=== PATIENT | female | born 1960 | race Caucasian/White ===

== ENCOUNTER 2023-04-04 15:52 | Outpatient (OUT) | payer OTHER, SELFPAY ==
[2023-04-04 16:14] LABS: Basophils Percent Auto 0.2 % (0.2-2.0); Eosinophils Percent Auto 0.1 % (0.9-7.0); Hematocrit 38.7 % (36.0-48.0); Hemoglobin 13.3 g/dL (12.0-16.0); Immature Granulocytes Abs Auto 0.05 10^3/uL (0.00-0.03); Immature Granulocytes Pct Auto 0.5 % (0.0-0.5); Lymphocytes Absolute Auto 2.1 10^3/uL (1.2-3.8); Lymphocytes Percent Auto 23.4 % (20.5-60.0); Mean Corpuscular HGB Conc 34.4 g/dL (29.9-35.2); Mean Corpuscular Hemoglobin 31.1 pg (26.7-34.0); Mean Corpuscular Volume 90.6 fL (81.0-99.0); Mean Platelet Volume 9.6 fL (9.5-13.5); Monocytes Absolute Auto 0.7 10^3/uL (0.3-0.8); Monocytes Percent Auto 7.1 % (1.7-12.0); Neutrophils Absolute Auto 6.2 10^3/uL (1.4-6.5); Neutrophils Percent Auto 68.7 % (43.0-75.0); Platelet Count 326 10^3/uL (150-450); Red Blood Count 4.27 10^6/uL (4.20-5.40); Red Cell Distribution Width 12.3 % (11.0-15.0); White Blood Count 9.1 10^3/uL (4.0-11.0)
[2023-04-04 16:36] LABS: Alanine Aminotransferase 30 U/L (14-59); Albumin Globulin Ratio 1.2; Albumin Level 4.3 g/dL (3.4-5.0); Alkaline Phosphatase 94 U/L (46-116); Anion Gap 14.7; Aspartate Amino Transferase 16 U/L (15-37); BUN Creatinine Ratio 25.8; Bilirubin Total 0.5 mg/dL (0.2-1.0); Calcium 9.1 mg/dL (8.5-10.1); Chloride 99 mmol/L (98-107); Estimated GFR (African America >60 (>=60); Estimated GFR (Non-African Ame 58 (>=60); Globulin 3.6 g/dL; Glucose 110 mg/dL (74-106); Sodium 139 mmol/L (136-145); Total Protein 7.9 g/dL (6.4-8.2)
[2023-04-04 17:00] LABS: Potassium 2.7 mmol/L (3.5-5.1)
== END 2023-04-04 15:53 | disposition home or self-care (01) ==
LOC: LAB 15:59
PROVIDERS: PCP Family Medicine; Visit Provider Registered Nurse
DX: M15.0 Primary generalized (osteo)arthritis (principal); M79.7 Fibromyalgia; Z79.899 Other long term (current) drug therapy
CPT/HCPCS: 36415; 80053; 85025

== ENCOUNTER 2023-04-04 17:17 | Emergency (ER) | payer OTHER, SELFPAY ==
[2023-04-04 17:44] VITALS: BP 187/86; PULSE 57; RESP 16; TEMP 36.4; O2SAT 100; BMI 28.3
--- NOTE | 2023-04-04 17:45 | ECG_ITS ---
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
--- NOTE | 2023-04-04 17:57 | ED_ITS ---
HPI - Recheck/Abnormal Lab/Rx General Chief Complaint: Recheck/Abnormal Lab/Rx Stated Complaint: Abnormal Labs Time Seen by Provider: 04/04/23 17:46 Source: patient and family Mode of arrival: walk-in Limitations: no limitations History of Present Illness HPI narrative: 63-year-old female presents for low potassium. She had routine blood work done today and she reports her potassium came back at 2.7 and she was sent in to have it checked. She has no symptoms at all. 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 She had been started on Lasix a few weeks ago and is not on a potassium supplement. Related Data Previous Rx's Medication Instructions Recorded potassium chloride 20 mEq 20 meq PO BID #20 tabs 04/04/23 tablet,extended release(part/cryst) Allergies Allergy/AdvReac Type Severity Reaction Status Date / Time sumatriptan [From Imitrex] AdvReac Severe Migraine Verified 04/04/23 17:44 topiramate [From Trokendi XR] AdvReac Severe nightmares Verified 04/04/23 17:44 Review of Systems ROS Narrative A ten point review of systems is negative except as noted above. PFSH PFSH Social History Smoking status: Never smoker Exam Narrative Exam Narrative: Nurses note and vital signs reviewed and patient is not hypoxic. General: The patient appears well and in no apparent distress. Patient is resting comfortably on cart. Skin: Warm, dry, no pallor noted. There is no rash noted. Head: Normocephalic, atraumatic Eye: Normal conjunctiva, no drainage Ears, Nose, Mouth, and Throat: oral mucosa is moist. Nares patent. Cardiovascular: Regular Rate and Rhythm Respiratory: Patient is in no distress, no accessory muscle use, lungs are clear to auscultation, no wheezing, rales or rhonchi Back: non-tender GI: soft and nontender Musculoskeletal: The patient has no evidence of calf tenderness, no pitting edema, symmetrical pulses noted bilaterally Neurological: A&O, normal speech Psychiatric: Cooperative Constitutional Vital Signs, click to edit/add: Last Vital Signs Temp 97.6 F 04/04/23 17:44 Pulse 57 L 04/04/23 17:44 Resp 16 04/04/23 17:44 BP 187/86 H 04/04/23 17:44 Pulse Ox 100 04/04/23 17:44 O2 Del Method Room Air 04/04/23 17:44 Course Vital Signs Vital signs: Vital Signs Temperature 97.6 F 04/04/23 17:44 Pulse Rate 57 L 04/04/23 17:44 Respiratory Rate 16 04/04/23 17:44 Blood Pressure 187/86 H 04/04/23 17:44 Pulse Oximetry 100 04/04/23 17:44 Oxygen Delivery Method Room Air 04/04/23 17:44 Temperature 97.6 F 04/04/23 17:44 Pulse Rate 57 L 04/04/23 17:44 Respiratory Rate 16 04/04/23 17:44 Blood Pressure 187/86 H 04/04/23 17:44 Pulse Oximetry 100 04/04/23 17:44 Oxygen Delivery Method Room Air 04/04/23 17:44 MDM - Recheck/Abnormal Lab/Rx MDM Narrative Medical decision making narrative: potassium is 2.8 -year-old. She is given oral potassium and prescribed potassium. Recheck with her physician regarding her potassium in a week. Treatment diagnosis and follow-up were discussed with the patient. Differential Diagnosis Differential diagnosis: Likely other (hypokalemia, lab error) Lab Data Attestation: I reviewed the patient's lab results. Labs: Lab Results 04/04/23 Range/Units 18:17 WBC 10.0 (4.0-11.0) 10^3/uL RBC 4.18 L (4.20-5.40) 10^6/uL Hgb 12.8 (12.0-16.0) g/dL Hct 38.4 (36.0-48.0) % MCV 91.9 (81.0-99.0) fL MCH 30.6 (26.7-34.0) pg MCHC 33.3 (29.9-35.2) g/dL RDW 12.3 (11.0-15.0) % Plt Count 301 (150-450) 10^3/uL MPV 9.5 (9.5-13.5) fL Neut % (Auto) 63.9 (43.0-75.0) % Lymph % (Auto) 28.0 (20.5-60.0) % [place] % (Auto) 7.4 (1.7-12.0) % Eos % (Auto) 0.2 L (0.9-7.0) % Baso % (Auto) 0.3 (0.2-2.0) % Neut # (Auto) 6.4 (1.4-6.5) 10^3/uL Lymph # (Auto) 2.8 (1.2-3.8) 10^3/uL [place] # (Auto) 0.7 (0.3-0.8) 10^3/uL Eos # (Auto) 0.0 (0.0-0.7) 10^3/uL Baso # (Auto) 0.0 (0.0-0.1) 10^3/uL Abs Immat Gran (auto) 0.02 (0.00-0.03) 10^3/uL Imm/Tot Granulo (auto) 0.2 (0.0-0.5) % Sodium 135 L (136-145) mmol/L Potassium 2.8 L* (3.5-5.1) mmol/L Chloride 100 (98-107) mmol/L Carbon Dioxide 28.7 (21.0-32.0) mmol/L Anion Gap 9.1 BUN 25.0 H (7.0-18.0) mg/dL Creatinine 1.04 H (0.55-1.02) mg/dL Est GFR ( Amer) >60 (>=60) Est GFR (Non-Af Amer) 53 L (>=60) BUN/Creatinine Ratio 24.0 Glucose 77 (74-106) mg/dL Calcium 9.1 (8.5-10.1) mg/dL Discharge Plan Discharge Chief Complaint: Recheck/Abnormal Lab/Rx Clinical Impression: Hypokalemia Patient Disposition: Home, Self-Care Time of Disposition Decision: 18:42 Condition: Good Mode of Transportation: Private Vehicle Prescriptions / Home Meds: New potassium chloride 20 mEq tablet,ER particles/crystals 20 meq PO BID Qty: 20 0RF Instructions: Potassium Content of Foods List (ED), Hypokalemia (ED) Additional Instructions: recheck potassium with your PCP in a week Stand Alone Forms: Portal Instructions Referrals: GT ORONA [Primary Care Provider] - 1 week
[2023-04-04 18:24] LABS: Basophils Percent Auto 0.3 % (0.2-2.0); Eosinophils Percent Auto 0.2 % (0.9-7.0); Hematocrit 38.4 % (36.0-48.0); Hemoglobin 12.8 g/dL (12.0-16.0); Immature Granulocytes Abs Auto 0.02 10^3/uL (0.00-0.03); Immature Granulocytes Pct Auto 0.2 % (0.0-0.5); Lymphocytes Absolute Auto 2.8 10^3/uL (1.2-3.8); Mean Corpuscular HGB Conc 33.3 g/dL (29.9-35.2); Mean Corpuscular Hemoglobin 30.6 pg (26.7-34.0); Mean Corpuscular Volume 91.9 fL (81.0-99.0); Mean Platelet Volume 9.5 fL (9.5-13.5); Monocytes Absolute Auto 0.7 10^3/uL (0.3-0.8); Monocytes Percent Auto 7.4 % (1.7-12.0); Neutrophils Absolute Auto 6.4 10^3/uL (1.4-6.5); Neutrophils Percent Auto 63.9 % (43.0-75.0); Platelet Count 301 10^3/uL (150-450); Red Blood Count 4.18 10^6/uL (4.20-5.40); Red Cell Distribution Width 12.3 % (11.0-15.0)
[2023-04-04 18:35] LABS: Anion Gap 9.1; Calcium 9.1 mg/dL (8.5-10.1); Carbon Dioxide 28.7 mmol/L (21.0-32.0); Chloride 100 mmol/L (98-107); Estimated GFR (African America >60 (>=60); Estimated GFR (Non-African Ame 53 (>=60); Glucose 77 mg/dL (74-106); Sodium 135 mmol/L (136-145)
[2023-04-04 18:37] LABS: Potassium 2.8 mmol/L (3.5-5.1)
[2023-04-04] MEDS: PROMETHAZINE HCL 25 MG/ML VIAL IM (18:54)
[2023-04-04] MEDS: MORPHINE SULFATE 4 MG/ML VIAL 10 MG IM (19:07)
== END 2023-04-04 19:12 | disposition home or self-care (01) ==
PROVIDERS: Emergency Provider Emergency Medicine; PCP Family Medicine
DX: M15.0 Primary generalized (osteo)arthritis (principal); M79.7 Fibromyalgia; Z79.899 Other long term (current) drug therapy; E87.6 Hypokalemia
CPT/HCPCS: 36415; 80048; 80053; 85025; 93005; 96372; 99285

== ENCOUNTER 2023-07-31 12:16 | Outpatient (OUT) | payer OTHER, SELFPAY ==
--- NOTE | 2023-07-31 12:30 | ECG_ITS ---
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
--- OUTSIDE RECORDS SUMMARY | 2023-07-31 12:37 | XMS_ITS | CCD ---
Author Name Unknown Address [address] [place] [address] Organization [facility] Care Team Providers Care Lumber Checker Name Role Phone [facility] Unava ilable PAY, DR CALLEJAS Attending Unavailable PAY, DR CALLEJAS Admitting Unavailable PAY, DR CALLEJAS Consulting Unavailable FRANCISCA MCGEE Attending Unavailable FRANCISCA MCGEE Admitting Unavailable ADWOA, DR DEL REAL Primary Care Unavailable FRANCISCA MCGEE Consulting Unavailable CHELSEA GRECO Admitting Unavailable CHELSEA GRECO Consulting Unavailable [facility] Unava ilable CHELSEA GRECO Attending Unavailable Sg Hernández MD Primary Care Provider Sg Hernández MD Unavailable OMAR RAMOS Attending Unavailable OMAR RAMOS Attending Unavailable OMAR RAMOS Attending Unavailable OMAR RAMOS Attending Unavailable Allergies Allergy Classification Reported Allergen(s) Allergy Type Date of Onset Reaction(s) Facility (1 source) Plasmin Drug Allergy 07-20-2016 [facility] (1 source) topiramate Drug Allergy [facility] (6 sources) SUMAtriptan Drug Allergy 02-08-2023 [facility] (6 sources) topiramate Drug Allergy 02-08-2023 [facility] Medications Current Medications Medication Drug Class(es) Dates Sig (Normalized) Sig (Original) ALPRAZolam 0.5 mg oral tablet (6 sources) Benzodiazepine Start: 4 take 1 tablet by mouth twice daily as needed for anxiety ALPRAZolam (Xanax) 0.5 MG tablet Indications: Grief (CMS/HCC) Take 1 tablet (0.5 mg) by mouth 2 (two) times a day as needed for anxiety 60 tablet 2 06/07/2023 Active biotin 10 mg oral tablet (6 sources) biotin 10 MG tab let 1 (one) time each day at the same time. 0 Active brexpiprazole 1 mg oral tablet (6 sources) Atypical Antipsychotic Start: 3 Brexpiprazole (Rexulti) 1 MG tablet Indications: Anxiety Take 1 mg by mouth 1 (one) time each day at the same time. 1 (one) time each day at the same time. 30 tablet 1 2023 Active cetirizine hydrochloride 10 mg oral tablet (6 sources) Histamine-1 Receptor Antagonist cetirizine (ZyrTEC) 10 MG tablet 1 (one) time each day at the same time. 0 Active chlorthalidone 25 mg oral tablet (6 sources) Thiazide-like Diuretic chlorthalidone (Hygroton) 25 MG tablet Take by mouth Daily. 0 Active furosemide 20 mg oral tablet (6 sources) Loop Diuretic Start: 3 End: 4 take 1 tablet by mouth in the morning furosemide (Lasix) 20 MG tablet Indications: Leg pain, bilateral Take 1 tablet (20 mg) by mouth in the morning. 30 tablet 11 2023 2024 Active levothyroxine sodium 0.088 mg oral tablet (6 sources) l-Thyroxine Start: 3 take 1 tablet by mouth once daily levothyroxine (Synthroid, Levoxyl) 88 MCG tablet Indications: Acquired hypothyroidism (CMS/HCC) Take 1 tablet by mouth once daily. 100 tablet 3 04/23/2023 Active methylPREDNISolone (2 sources) Corticosteroid Start: 4 methylPREDNISolone (Medrol Dospak) 4 MG tablets Indications: Right Achilles tendinitis Follow schedule on MEDROL PACK package instructions to be used as directed 21 tablet 0 07/12/2023 Active Multiple Vitamin (Multi Vitamin) tablet (6 sources) Multiple Vitamin (Multi Vitamin) tablet 1 (one) time each day at the same time. 0 Active 24 hr propranolol hydrochloride 60 mg extended release oral capsule (6 sources) beta-Adrenergic Nabeel propranolol LA (Inderal LA) 60 MG 24 hr capsule 1 capsule 1 (one) time each day at the same time. 0 Active tiZANidine 4 mg oral tablet (6 sources) Central alpha-2 Adrenergic Agonist tiZANidine (Zanaflex ) 4 MG tablet every 8 (eight) hours. 0 Active 24 hr venlafaxine 150 mg extended release oral capsule (6 sources) Serotonin and Norepinephrine Reuptake Inhibitor venlafaxine XR (Effexor XR) 150 MG 24 hr capsule 1 (one) time each day at the same time. 0 Active Problems Active Problems Problem Classification Problem Date Documented Da te Episodic/Chronic Adjustment disorders (6 sources) Grief finding; Translations: [Adjustment disorder with depressed mood] Onset: 12-04-2022 12-04-2022 Chronic Anxiety disorders (7 sources) Other specified anxiety disorders; Translations: [Anxiety] Onset: 05-05-2022 2023 Chronic Cataract (6 sources) Nuclear senile cataract; Translations: [Age-related nuclear cataract, unspecified eye] Onset: 02-08-2023 02-08-2023 Chronic Disorders of lipid metabolism (6 sources) Pure hypercholesterolemi a; Translations: [Pure hypercholesterolemi a, unspecified] Onset: 12-04-2022 12-04-2022 Chronic Essential hypertension (6 sources) Hypertensive disorder; Translations: [Essential (primary) hypertension] Onset: 12-04-2022 12-04-2022 Chronic Headache; including migraine (12 sources) Migraine without aura, not refractory ; Translations: [Migraine without aura, not intractable, without status migrainosus] Onset: 08-31-2022 12-04-2022 Chronic Headache; including migraine (4 sources) Headache; including migraine; Translations: [HEADACHE UNSPECIFIED] Onset: 05-03-2022 Neoplasms of unspecified nature or uncertain behavior (2 sources) Neoplasm of uncertain behavior of skin; Translations: [Neoplasm of uncertain behavior of skin] 07-05-2023 Episodic Other acquired deformities (4 sources) Contracture of joint of right ankle; Translations: [Contracture, right ankle] 07-05-2023 Chronic Other aftercare (1 source) Other half-way (current) drug therapy; Translations: [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] Onset: 2022 Episodic Other connective tissue disease (2 sources) Plantar fasciitis; Translations: [Plantar fascial fibromatosis] 07-05-2023 Episodic Other connective tissue disease (4 sources) Right achilles tendonitis; Translations: [Achilles tendinitis, right leg] 07-05-2023 Episodic Other nervous system disorders (1 source) Other chronic pain; Translations: [OTHER CHRONIC PAIN] Onset: 01-06-2022 Chronic Thyroid disorders (7 sources) Hypothyroidism, unspecified; Translations: [Hypothyroidism] Onset: 01-06-2022 12-04-2022 Chronic Viral infection (4 sources) COVID-19; Translations: [COVID-19] Onset: 02-04-2022 Past or Other Problems Problem Classification Problem Date Documented Date Episodic/Chronic Nausea and vomiting (1 source) Nausea; Translations: [NAUSEA] Onset: 01-06-2022 Episodic Other connective tissue disease (1 source) Fibromyalgia; Translations: [FIBROMYALGIA] Onset: 01-06-2022 Episodic Other connective tissue disease (6 sources) Fibromyalgia; Translations: [Fibromyalgia] Onset: 08-31-2022 03-25-2023 Episodic Other eye disorders (6 sources) Dermatochalasis of left upper eyelid; Translations: [Dermatochalasis of left upper eyelid] Onset: 02-08-2023 02-08-2023 Episodic Other eye disorders (6 sources) Excess skin of eyelid; Translations: [Blepharochalasis unspecified eye, unspecified eyelid] Onset: 02-08-2023 02-08-2023 Episodic Other non-traumatic joint disorders (6 sources) Pain in left knee; Translations: [Pain in joint, lower leg] Onset: 08-31-2022 03-25-2023 Episodic Spondylosis; intervertebral disc disorders; other back problems (1 source) Cervicalgia; Translations: [CERVICALGIA] Onset: 01-06-2022 Episodic Results Test Name Value Interpretation Reference Range Facil ity CBC AUTO DIFFon 02-04-2022 BASO # 0.0 103/ul Normal 0.0-0.1 [facility] Comment on above: Performed By: #### C BC #### [facility] [address] [place] [address] Dr. Sarah Peña Basophils/100 WBC (Bld) 0.4 % Normal 0.2-2.0 [facility] Comment on above: Performed By: #### C BC #### [facility] [address] [place] [address] Dr. Sarah Peña EO # 0.0 103/ul Normal 0.0-0.7 [facility] Comment on above: Performed By: #### C BC #### [facility] [address] [place] [address] Dr. Sarah Peña Eosinophils/100 WBC (Bld) 0.5 % Critically low 0.9-7.0 [facility] Comment on above: Performed By: #### C BC #### [facility] [address] [place] [address] Dr. Sarah Peña Erythrocyte distribution width (RBC) [Ratio] 13.1 % Normal 11.0-15.0 [facility] Comment on above: Performed By: #### C BC #### [facility] [address] [place] [address] Dr. Sarah Peña Hematocrit (Bld) [Volume fraction] 46.0 % Normal 36.0-48.0 [facility] Comment on above: Performed By: #### C BC #### [facility] [address] [place] [address] Dr. Sarah Peña Hemoglobin (Bld) [Mass/Vol] 15.3 g/dL Normal 12.0-16.0 [facility] Comment on above: Performed By: #### C BC #### [facility] [address] [place] [address] Dr. Sarah Peña IG # 0.01 10e3/ul Normal 0.00-0.03 [facility] Comment on above: Performed By: #### C BC #### [facility] [address] [place] [address] Dr. Sarah Peña IG % 0.2 % Normal 0.0-0.5 [facility] Comment on above: Performed By: #### C BC #### [facility] [address] [place] [address] Dr. Sarah Peña LYMPH # 1.8 103/ul Normal 1.2-3.8 [facility] Comment on above: Performed By: #### C BC #### [facility] [address] [place] [address] Dr. Sarah Peña Lymphocytes/100 WBC (Bld) 32.5 % Normal 20.5-60.0 [facility] Comment on above: Performed By: #### C BC #### [facility] [address] [place] [address] Dr. Sarah Peña MANUAL DIFF REQ NO Normal [facility] Comment on above: Performed By: #### C BC #### [facility] [address] [place] [address] Dr. Sarah Peña MCH (RBC) [Entitic mass] 29.8 pg Normal 26.7-34.0 [facility] Comment on above: Performed By: #### C BC #### [facility] [address] [place] [address] Dr. Sarah Peña MCHC (RBC) [Mass/Vol] 33.3 g/dL Normal 29.9-35.2 [facility] Comment on above: Performed By: #### C BC #### [facility] [address] [place] [address] Dr. Sarah Peña MCV (RBC) [Entitic vol] 89.5 fL Normal 81.0-99.0 [facility] Comment on above: Performed By: #### C BC #### [facility] [address] [place] [address] Dr. Sarah Peña MONO # 0.6 103/ul Normal 0.3-0.8 [facility] Comment on above: Performed By: #### C BC #### [facility] [address] [place] [address] Dr. Sarah Peña Monocytes/100 WBC (Bld) 10.8 % Normal 1.7-12.0 [facility] Comment on above: Performed By: #### C BC #### [facility] [address] [place] [address] Dr. Sarah Peña NEUT # 3.1 103/ul Normal 1.4-6.5 [facility] Comment on above: Performed By: #### C BC #### [facility] [address] [place] [address] Dr. Sarah Peña Neutrophils/100 WBC (Bld) 55.6 % Normal 43.0-75.0 [facility] Comment on above: Performed By: #### C BC #### [facility] [address] [place] [address] Dr. Sarah Peña Platelet mean volume (Bld) [Entitic vol] 9.8 fL Normal 9.5-13.5 [facility] Comment on above: Performed By: #### C BC #### [facility] [address] [place] [address] Dr. Sarah Peña PLT 245 103/ul Normal 150-450 [facility] Comment on above: Performed By: #### C BC #### [facility] [address] [place] [address] Dr. Sarah Peña RBC 5.14 106/ul Normal 4.20-5.40 [facility] Comment on above: Performed By: #### C BC #### [facility] [address] [place] [address] Dr. Sarah Peña WBC 5.5 103/ul Normal 4.0-11.0 [facility] Comment on above: Performed By: #### C BC #### [facility] [address] [place] [address] Dr. Sarah Peña PROF CHEM 8 (BAS METB)on Anion gap [Moles/Vol] 14.7 mmol/L Normal [facility] Comment on above: Performed By: #### B MP #### [facility] [address] [place] [address] Dr. Sarah Peña Calcium [Mass/Vol] 9.7 mg/dL Normal 8.5-10.1 [facility] Comment on above: Performed By: #### B MP #### [facility] [address] [place] [address] Dr. Sarah Peña Chloride [Moles/Vol] 98 mmol/L Normal 98-107 [facility] Comment on above: Performed By: #### B MP #### [facility] [address] [place] [address] Dr. Sarah Peña CO2 [Moles/Vol] 29.0 mmol/L Normal 21.0-32.0 [facility] Comment on above: Performed By: #### B MP #### [facility] [address] [address] [address] Sarah Peña Creatinine [Mass/Vol] 0.96 mg/dL Normal 0.55-1.02 [facility] Comment on above: Performed By: #### B MP #### [facility] [address] [address] [address] Sarah Peña EGFR-AF PALESTINIAN >60 Normal >=60 [facility] Comment on above: Performed By: #### B MP #### [facility] [address] [address] [address] Sarah Peña EGFR-NON AF PALESTINIAN 59 mL/min/1.73m2 Critically low >=60 [facility] Comment on above: Performed By: #### B MP #### [facility] [address] [address] [address] Sarah Peña Glucose [Mass/Vol] 110 mg/dL Critically high 74-[address] [facility] Comment on above: Performed By: #### B MP #### [facility] [address] [address] [address] Sarah Peña Potassium [Moles/Vol] 2.7 mmol/L Critically low 3.5-5.1 [facility] Comment on above: Performed By: #### B MP #### [facility] [address] [address] [address] Sarah Peña Sodium [Moles/Vol] 139 mmol/L Normal 136-145 [facility] Comment on above: Performed By: #### B MP #### [facility] [address] [address] [address] Sarah Peña Urea nitrogen [Mass/Vol] 14.0 mg/dL Normal 7.0-18.0 [facility] Comment on above: Performed By: #### B MP #### [facility] [address] [address] [address] Sarah Peña Urea nitrogen/Creatinine [Mass ratio] 14.6 mg/mg Normal [facility] Comment on above: Performed By: #### B MP #### [facility] [address] [address] [address] Sarah Peña Complete Blood Count Auto Di ffon 07-21-2021 Basophils (Bld) [#/Vol] 0.1 10*3/uL Normal 0.0-0.2 [facility] Comment on above: Result Comment: PERF ORMED BY: [place] [address] PATHOLOGIST MEDICAID BILLING CLERK ERINN BANEGAS M.D. Performed By: #### C MP, CBC #### [facility] [address] Basophils/100 WBC (Bld) 1.2 % Normal . [facility] Comment on above: Performed By: #### C MP, CBC #### [facility] [address] Eosinophils (Bld) [#/Vol] 0.3 10*3/uL Normal 0.0-0.45 [facility] Comment on above: Performed By: #### C MP, CBC #### [facility] [address] [place] [address] [place] Eosinophils/100 WBC (Bld) 3.5 % Normal . [facility] Comment on above: Performed By: #### C MP, CBC #### [facility] [address] Erythrocyte distribution width (RBC) [Ratio] 13.9 % Normal 11.9-15.3 [facility] Comment on above: Performed By: #### C MP, CBC #### [facility] [address] [place] [address] [place] Hematocrit (Bld) [Volume fraction] 39.2 % Normal 34.0-46.4 [facility] Comment on above: Performed By: #### C MP, CBC #### [facility] [address] [place] [address] [place] Hemoglobin (Bld) [Mass/Vol] 13.7 g/dL Normal 11.8-15.4 [facility] Comment on above: Performed By: #### C MP, CBC #### [facility] [address] Lymphocytes (Bld) [#/Vol] 2.8 10*3/uL Normal 1.00-4.8 [facility] Comment on above: Performed By: #### C MP, CBC #### [place] [address] [place] Lymphocytes/100 WBC (Bld) 35.0 % Normal . [facility] Comment on above: Performed By: #### C MP, CBC #### [place] [address] [place] MCH (RBC) [Entitic mass] 31.6 pg Normal 24.7-34.3 [facility] Comment on above: Performed By: #### C MP, CBC #### [address] MCV (RBC) [Entitic vol] 90.7 fL Normal 80-100 [facility] Comment on above: Performed By: #### C MP, CBC #### [address] Mean Corpuscular HGB Conc 34.9 g/dL Normal 32.0-35.0 [facility] Comment on above: Performed By: #### C MP, CBC #### [address] Monocytes (Bld) [#/Vol] 0.7 10*3/uL Normal 0.0-0.8 [facility] Comment on above: Performed By: #### C MP, CBC #### [place] [address] [place] Monocytes/100 WBC (Bld) 8.2 % Normal . [facility] Comment on above: Performed By: #### C MP, CBC #### [place] [address] [place] Neutrophils (Bld) [#/Vol] 4.2 10*3/uL Normal 1.8-7.7 [facility] Comment on above: Performed By: #### C MP, CBC #### [address] [place] [address] [place] Neutrophils/100 WBC (Bld) 52.1 % Normal . [facility] Comment on above: Performed By: #### C MP, CBC #### [address] Nucleated RBC/100 WBC (Bld) [Ratio] 0.1 % Normal 0-0.5 [facility] Comment on above: Performed By: #### C MP, CBC #### [address] Platelet mean volume (Bld) [Entitic vol] 7.9 fL Normal 6.3-10.7 [facility] Comment on above: Performed By: #### C MP, CBC #### [address] Platelets (Bld) [#/Vol] 318 10*3/uL Normal 150-450 [facility] Comment on above: Performed By: #### C MP, CBC #### [address] RBC (Bld) [#/Vol] 4.33 10*6/uL Normal 3.60-5.00 [facility] Comment on above: Performed By: #### C MP, CBC #### [address] WBC (Bld) [#/Vol] 8.0 10*3/uL Normal 4.5-11.0 [facility] Comment on above: Performed By: #### C MP, CBC #### [address] Comprehensive Metabolic Pane jose 07-21-2021 Albumin [Mass/Vol] 4.3 g/dL Normal 3.2-5.5 [facility] Comment on above: Performed By: #### C MP, CBC #### [address] Albumin/Globulin [Mass ratio] 1.4 {ratio} Normal [facility] Comment on above: Performed By: #### C MP, CBC #### [facility] [address] [place] [address] ALP [Catalytic activity/Vol] 84 U/L Normal 32-92 [facility] Comment on above: Result Comment: PERF ORMED BY: [place] [address] PATHOLOGIST MEDICAID BILLING CLERK ERINN BANEGAS M.D. Performed By: #### C MP, CBC #### [address] ALT [Catalytic activity/Vol] 23 U/L Normal 10-60 [facility] Comment on above: Performed By: #### C MP, CBC #### [facility] [address] [place] [address] AST [Catalytic activity/Vol] 23 U/L Normal 10-42 [facility] Comment on above: Performed By: #### C MP, CBC #### [facility] [address] [place] [address] Bilirubin [Mass/Vol] 0.6 mg/dL Normal 0.3-1.2 [facility] Comment on above: Performed By: #### C MP, CBC #### [facility] [address] [place] [address] Calcium [Mass/Vol] 9.3 mg/dL Normal 8.2-10.2 [facility] Comment on above: Performed By: #### C MP, CBC #### [facility] [address] [place] [address] [place] Chloride [Moles/Vol] 101 mmol/L Normal 95-114 [facility] Comment on above: Performed By: #### C MP, CBC #### [facility] [address] [place] [address] [place] CO2 [Moles/Vol] 27.5 mmol/L Normal 22.0-30.0 [facility] Comment on above: Performed By: #### C MP, CBC #### [facility] [address] [place] [address] [place] Creatinine [Mass/Vol] 1.11 mg/dL High 0.44-1.03 [facility] Comment on above: Performed By: #### C MP, CBC #### [facility] [address] [place] [address] [place] Estimated GFR ( Elsa 60 Normal [facility] Comment on above: Result Comment: GFR estimated reference range: According to KDOQI guidelines, <60 ml/min/1.73m2 is sufficient to diagnose a patient with chronic kidney disease. Performed By: #### C MP, CBC #### [facility] [address] [place] [address] [place] Estimated GFR (Non- Am 50 Normal [facility] Comment on above: Performed By: #### C MP, CBC #### [facility] [address] Globulin (S) [Mass/Vol] 3.1 g/dL Normal [facility] Comment on above: Performed By: #### C MP, CBC #### [address] Glucose [Mass/Vol] 81 mg/dL Normal 70-100 [facility] Comment on above: Result Comment: [place] Glucose Reference Range is dependent on time and content of last meal. Glucose of more than 200 mg/dL in a nonstressed, ambulatory subject supports the diagnosis of Diabetes Mellitus. ADA recommended reference range Performed By: #### C MP, CBC #### [address] Potassium [Moles/Vol] 3.7 mmol/L Normal 3.5-5.1 [facility] Comment on above: Performed By: #### C MP, CBC #### [place] [address] [place] Protein [Mass/Vol] 7.4 g/dL Normal 6.1-7.9 [facility] Comment on above: Performed By: #### C MP, CBC #### [address] Sodium [Moles/Vol] 140 mmol/L Normal 136-146 [facility] Comment on above: Performed By: #### C MP, CBC #### [facility] [address] [id number] [place] Urea nitrogen [Mass/Vol] 27 mg/dL High 9 [facility] Comment on above: Performed By: #### C MP, CBC #### [facility] [address] [id number] [facility] Vital Signs Date Time Vital Sign Value Performing Clinician Lon narvaez 07-12-2023 16:27-0500 Body height 160 cm Omar Brown DPM Work Phone: [facility] 07-12-2023 16:27-0500 Body mass index (BMI) [Ratio] 29.23 kg/m2 Omar Brown DPM Work Phone: [facility] 07-12-2023 16:27-0500 Body weight 74.84 kg Omar Brown DPM Work Phone: [facility] 07-12-2023 16:27-0500 Diastolic blood pressure 80 mm[Hg] Omar Brown DPM Work Phone: [facility] 07-12-2023 16:27-0500 Heart rate 79 /min Omar Brown DPM Work Phone: [facility] 07-12-2023 16:27-0500 Systolic blood pressure 123 mm[Hg] Omar Brown DPM Work Phone: [facility] 07-05-2023 15:21-0500 Body height 160 cm Omar Brown DPM Work Phone: [facility] 07-05-2023 15:21-0500 Body mass index (BMI) [Ratio] 29.23 kg/m2 Omar Brown DPM Work Phone: [facility] 07-05-2023 15:21-0500 Body weight 74.84 kg Omar Brown DPM Work Phone: [facility] 07-05-2023 15:21-0500 Diastolic blood pressure 85 mm[Hg] Omar Brown DPM Work Phone: [facility] 07-05-2023 15:21-0500 Heart rate 81 /min Omar Ramos DPM Work Phone: [facility] 07-05-2023 15:21-0500 Systolic blood pressure 133 mm[Hg] Omar Ramos DPM Work Phone: [facility] Encounters Encounter Date Encounter Type Care Provider Facility Start: 07-26-2023 End: 07-26-2023 ambulatory OMAR RAMOS Not Available Start: 07-12-2023 End: 07-12-2023 ambulatory OMAR RAMOS Not Available Start: 07-12-2023 End: 07-12-2023 Office outpatient visit 15 minutes Omar Ramos DPM Work Phone: [facility] Comment on above: Right Achilles tendi nitis (Primary Dx); Contracture of right ankle Start: 07-12-2023 Chart abstracting Omar cox DPM Work Phone: [facility] Start: 07-05-2023 End: 07-05-2023 ambulatory OMAR RAMOS Not Available Start: 07-05-2023 End: 07-05-2023 Office outpatient visit 15 minutes Omar Ramos DPM Work Phone: [facility] Comment on above: Right Achilles tendi nitis (Primary Dx); Plantar fasciitis; Contracture of right ankle; Neoplasm of uncertain behavior of skin Start: 07-05-2023 Chart abstracting Omar cox DPM Work Phone: [facility] Start: 04-26-2023 End: 04-26-2023 ambulatory OMAR RAMOS Not Available Start: 03-26-2023 Patient encounter procedure Omar Ramos DPM Work Phone: [facility] Start: 05-03-2022 End: 05-03-2022 ambulatory FRANCISCA MCGEE Facility:H1 Start: 02-04-2022 End: 02-04-2022 ambulatory CHELSEA GRECO Facility:[facility]1 Start: 01-04-2022 End: 01-04-2022 ambulatory [facility] Facility:[facility]1 Procedures Date Procedure Procedure Detail Performing Clinician Start: 06-29-2020 Mammography Omar cox DPM Work Phone: Start: 04-28-2009 Colonoscopy Omar cox DPM Work Phone: Plan of Treatment Date Care Activity Detail Author Start: 04-01-2026 Screening for malign ant neoplasm of colon [facility] Start: 03-26-2024 Medicare Annual Well ness (AWV) Medicare Annual Wellness (AWV) [facility] Start: 11-25-2023 Influenza vaccination Influenza Vacc ine (#1) [facility] Comment on above: Postponed from 01/26 (Other Patient Reasons) Start: 07-31-2023 End: 07-31-2023 Patient encounter procedure 07/31/2023 11:30 AM EST Office Visit [facility] [address] [place] [address] Tanesha Thakkar MD [address] [place] [address] [facility] Start: 07-26-2023 End: 07-26-2023 Patient encounter procedure 07/26/2023 3:50 PM EST Office Visit [facility] [address] [place] [address] Omar Ramos DPM [address] [address] [facility] Start: 07-19-2023 End: 07-19-2023 Clinical Support 07/19/2023 4:10 PM EST Clinical Support [facility] [address] [place] [address] Omar Ramos DPM [address] [address] [facility] Start: 07-12-2023 End: 07-12-2023 Patient encounter procedure 07/12/2023 4:20 PM EST Office Visit [facility] [address] [place] [address] Omar Ramos DPM [address] [address] [facility] Start: 07-05-2023 End: 07-05-2023 Patient encounter procedure 07/05/2023 3:20 PM EST Office Visit [facility] [address] [place] [address] Omar Ramos DPM [address] [address] [facility] Start: 06-29-2021 Screening for malign ant neoplasm of breast Mammogram [facility] Start: 04-28-2019 Screening for malign ant neoplasm of colon Colonoscopy [facility] Start: 02-14-1988 Screening for malign ant neoplasm of cervix [facility] Start: 1979 Screening for malign ant neoplasm of cervix Pap Smear [facility] Start: 1960 Screening for malign ant neoplasm of colon [facility] Immunizations Immunization Date Immunization Notes Care Provider Fa [facility] 03-26-2023 Pneumococcal Conjuga te PCV 20 Omar Ramos DPM Work Phone: [facility] 03-26-2023 zoster vaccine recombinant Omar Ramos DPM Work Phone: [facility] 02-27-2022 influenza, injectabl e, quadrivalent, preservative free Omar Ramos DPM Work Phone: [facility] 02-27-2022 influenza virus vacc ine, unspecified formulation Omar Ramos DPM Work Phone: [facility] 02-17-2022 Influenza, injectabl e, Madin Gloria Canine Kidney, preservative free, quadrivalent Omar Ramos DPM Work Phone: [facility] 02-16-2021 influenza, injectabl e, quadrivalent, preservative free Omar Ramos DPM Work Phone: [facility] 02-10-2020 Influenza, injectabl e, Madin Gloria Canine Kidney, preservative free, quadrivalent Omar Ramos DPM Work Phone: [facility] 02-17-2019 Influenza, injectabl e, Madin [place] Canine Kidney, preservative free, quadrivalent Omar Brown DPM Work Phone: [facility] 03-06-2018 Influenza, injectabl e, Madin Gloria Canine Kidney, preservative free, quadrivalent Omar Brown DPM Work Phone: [facility] 03-06-2017 seasonal influenza, intradermal, preservative free Omar Richard DPM Work Phone: [facility] 06-07-2012 tetanus toxoid, redu landen diphtheria toxoid, and acellular pertussis vaccine, adsorbed Omar Richard DPM Work Phone: [facility] 08-01-2011 hepatitis B vaccine, adult dosage Omar Richard DPM Work Phone: [facility] 03-02-2011 hepatitis B vaccine, adult dosage Omar Richard DPM Work Phone: [facility] 01-24-2011 hepatitis B vaccine, adult dosage Omar Ramos DPM Work Phone: [facility] Payers Date Payer Category Payer Unknown [employer] [id number] 2022-Present [address] [place] [address] [id number] 2022 Unknown [id number] 1961 Self-pay [id number] 1961 Unknown [id number] 1960 Unknown [id number] 1958 Unknown [id number] 1958 Unknown [id number] 1958 Unknown [id number] 1958 Unknown [id number] 1958 Unknown [id number] 1960 Unknown [id number] Social History Date Type Detail Facility Start: 07-05-2023 Tobacco smoking status MNIS Ex-smoke r [facility] End: 05-28-2007 History of tobacco use Current smoker [facility] End: 05-28-2007 History of tobacco use Cigarette Smoker [facility] Start: 07-05-2023 Tobacco use and exposure Smoke less tobacco non-user [facility] Start: 07-05-2023 End: 07-12-2023 Alcohol intake Ex-drinker (finding) [facility] Start: 2023 End: 03-26-2023 History of Social function [facility] Start: 2023 End: 03-26-2023 Humiliation, Afraid, Rape, and Kick questionnaire [HARK] [facility] Within the last year , have you been afraid of your partner or ex-partner? No [facility] Are you now , , , , never or living with a partner? [facility] How often to you hav e a drink containing alcohol? Monthly or less [facility] How many standard dr inks containing alcohol do you have on a typical day? 1 or 2 [facility] How often do you hav e 6 or more drinks on 1 occasion? Never [facility] How hard is it for y ou to pay for the very basics like food, housing, medical care, and heating Not hard at all [facility] Do you feel stress - tense, restless, nervous, or anxious, or unable to sleep at night because your mind is troubled all the time - these days [OSQ] Only a little [facility] (I/We) worried wheth er (my/our) food would run out before (I/we) got money to buy more. Never true [facility] Start: 07-05-2023 Tobacco Comment Last smoked <10 year s [facility] Start: 03-12-2023 Alcohol Comment caffeine 1-2 cups pe day [facility] Start: 1960 Sex Assigned At Female N [facility] Start: 01-24-2023 Gender identity Identifies as female gender (finding) [facility] History of Present illness Narrative 07-12-2023 Omar Calix Richard, DPM - 07/12/2023 4:20 PM EST Note Date & Type Note Facility 07-12-2023 History of Presen t illness Narrative Patient: Trista Barrett : 1960 PCP: Sg Hernández MD SUBJECTIVE Patient presents today for follow up of right HSS. Pt has had previous treatment of 2nd steroid injection, nsaids, stretching with relief in the past Pt states current pain on a 1-10 scale is a 5 Pt presents to day for follow up tx. Patient states negative relief with the last injection Patient also presents today follow-up of right Achilles tendinitis and states minimal to no improvement over the past week and presents today for follow-up Denies any history of skin cancers Allergies: Allergies Allergen Reactions Sumatriptan Other Reaction(s): Worsening of Pain Topiramate Er Other Reaction(s): violent nightmares Past Medical History: Past Medical History: Diagnosis Date Fibromyalgia Hypertension (CMS/HCC) Migraine (CMS/HCC) x3 Thyroid disease (CMS/HCC) Medications: Current Outpatient Medications: ALPRAZolam (Xanax) 0.5 MG tablet, Take 1 tablet (0.5 mg) by mouth 2 (two) times a day as needed for anxiety, Disp: 60 tablet, Rfl: 2 biotin 10 MG tablet, 1 (one) time each day at the same time., Disp: , Rfl: Brexpiprazole (Rexulti) 1 MG tablet, Take 1 mg by mouth 1 (one) time each day at the same time. 1 (one) time each day at the same time., Disp: 30 tablet, Rfl: 1 cetirizine (ZyrTEC) 10 MG tablet, 1 (one) time each day at the same time., Disp: , Rfl: chlorthalidone (Hygroton) 25 MG tablet, Take by mouth Daily., Disp: , Rfl: furosemide (Lasix) 20 MG tablet, Take 1 tablet (20 mg) by mouth in the morning., Disp: 30 tablet, Rfl: 11 levothyroxine (Synthroid, Levoxyl) 88 MCG tablet, Take 1 tablet by mouth once daily., Disp: 100 tablet, Rfl: 3 Multiple Vitamin (Multi Vitamin) tablet, 1 (one) time each day at the same time., Disp: , Rfl: propranolol LA (Inderal LA) 60 MG 24 hr capsule, 1 capsule 1 (one) time each day at the same time., Disp: , Rfl: tiZANidine (Zanaflex) 4 MG tablet, every 8 (eight) hours., Disp: , Rfl: venlafaxine XR (Effexor XR) 150 MG 24 hr capsule, 1 (one) time each day at the same time., Disp: , Rfl: Social History: Social History Socioeconomic History Marital status: Spouse name: Not on file Number of children: Not on file Years of education: Not on file Highest education level: Not on file Occupational History Not on file Tobacco Use Smoking status: Former Types: Cigarettes Quit date: 2007 Years since quittin.1 Smokeless tobacco: Never Tobacco comments: Last smoked <10 years Vaping Use Vaping Use: Unknown Substance and Sexual Activity Alcohol use: Not Currently Comment: caffeine 1-2 cups pe day Drug use: Never Sexual activity: Yes Partners: Male Comment: Sexual problem:dryness, STDs:No, Last menstrueal period: 10 years ago Other Topics Concern Not on file Social History Narrative Not on file Social Determinants of Health Financial Resource Strain: Low Risk (2023) Overall Financial Resource Strain (CARDIA) Difficulty of Paying Living Expenses: Not hard at all Food Insecurity: No Food Insecurity (2023) Hunger Vital Sign Worried About Running Out of Food in the Last Year: Never true Ran Out of Food in the Last Year: Never true Transportation Needs: No Transportation Needs (2023) PRAPARE - Transportation Lack of Transportation (Medical): No Lack of Transportation (Non-Medical): No Physical Activity: Sufficiently Active (2023) Exercise Vital Sign Days of Exercise per Week: 4 days Minutes of Exercise per Session: 150+ min Stress: No Stress Concern Present (2023) [employer] [place] [employer] - Occupational Stress Questionnaire Feeling of Stress : Only a little Social Connections: Moderately Isolated (2023) Social Connection and Isolation Panel [NHANES] Frequency of Communication with Friends and Family: Once a week Frequency of Social Gatherings with Friends and Family: Once a week Attends [employer] Services: More than 4 times per year Active Member of Clubs or Organizations: No Attends Club or Organization Meetings: Never Marital Status: Intimate Partner Violence: Not At Risk (2023) Humiliation, Afraid, Rape, and Kick questionnaire Fear of Current or Ex-Partner: No Emotionally Abused: No Physically Abused: No Sexually Abused: No Housing Stability: Low Risk (2023) Housing Stability Vital Sign Unable to Pay for Housing in the Last Year: No Number of Places Lived in the Last Year: 1 Unstable Housing in the Last Year: No ROS: General: denies fever, chills, fatigue, malaise GI: denies abdominal pain or ulcerations with anti-inflammatory medication OBJECTIVE LE EXAM: DERM: Positive hair growth to b/l feet with good skin turgor noted. Negative openings in skin Right mid arch region has a 0.5 cm x 0.4 cm dark brown like lesion with slightly irregular borders negative elevation and negative color changes within lesion VASC: Palpable pedal pulsed b/l with warm to cool tibia to toes b/l NEURO: Gross sensation intact digits 1-10 and b/l feet ORTHO: 20 degrees inversion and 10 degrees eversion STJ b/l. Ankle ROM less than 10 degrees b/l. Diminished pain on palpation to right medial calcaneal tubercle Positive pain palpation of right Achilles tendon with negative palpable Orla ASSESSMENT 1. Right Achilles tendinitis 2. Contracture of right ankle PLAN Patient is to continue with stretching excercizes daily with patient to continue with night stretching splint or manual stretching. Recommended to apply ice to affected areas for 20 minutes, twice daily. Ice should not be applied directly to skin. Patient placed on Medrol pack Pt dispensed pneumatic CAM walker ([id number]) today to maintain 90 degree foot to ankle position. Pt informed to only remove walker when at rest or bathing. ABN signed and in chart for device if warranted. The boot was assembled and adjusted liner and straps and pneumatically inflated for proper custom fitting by Omar Ramos DPM and staff. A verbal order was given for dispensing of device. The patient is ambulatory and may benefit functionally from this device. It may be used for the following conditions as noted per medical diagnosis. Omar Ramos DPM documented in this encounter [facility] History of Present illness Narrative 07-05-2023 Omar Ramos DPM - 07/05/2023 3:20 PM EST Note Date & Type Note Facility 07-05-2023 History of Presen t illness Narrative Patient: Trista Barrett : 1960 PCP: Sg Hernández MD SUBJECTIVE Patient presents today for follow up of right HSS. Pt has had previous treatment of 1st steroid injection, nsaids, stretching with relief in the past Pt states current pain on a 1-10 scale is a 8 Pt presents to day for follow up tx. Patient also states pain to the posterior aspect of her right heel region and points to the Achilles tendon area and states been present for the past few weeks and denies treatment besides stretching with night splint Patient also has complaint of the right mid arch region having area of a mole type lesion has been present for proximally the past 6 months and has not noticed until up to that time but denies any pain or changes to lesion in the past 8 months Denies any history of skin cancers Allergies: Allergies Allergen Reactions Sumatriptan Other Reaction(s): Worsening of Pain Topiramate Er Other Reaction(s): violent nightmares Past Medical History: Past Medical History: Diagnosis Date Fibromyalgia Hypertension (CMS/HCC) Migraine (CMS/HCC) x3 Thyroid disease (CMS/HCC) Medications: Current Outpatient Medications: ALPRAZolam (Xanax) 0.5 MG tablet, Take 1 tablet (0.5 mg) by mouth 2 (two) times a day as needed for anxiety, Disp: 60 tablet, Rfl: 2 biotin 10 MG tablet, 1 (one) time each day at the same time., Disp: , Rfl: Brexpiprazole (Rexulti) 1 MG tablet, Take 1 mg by mouth 1 (one) time each day at the same time. 1 (one) time each day at the same time., Disp: 30 tablet, Rfl: 1 cetirizine (ZyrTEC) 10 MG tablet, 1 (one) time each day at the same time., Disp: , Rfl: chlorthalidone (Hygroton) 25 MG tablet, Take by mouth Daily., Disp: , Rfl: furosemide (Lasix) 20 MG tablet, Take 1 tablet (20 mg) by mouth in the morning., Disp: 30 tablet, Rfl: 11 levothyroxine (Synthroid, Levoxyl) 88 MCG tablet, Take 1 tablet by mouth once daily., Disp: 100 tablet, Rfl: 3 Multiple Vitamin (Multi Vitamin) tablet, 1 (one) time each day at the same time., Disp: , Rfl: propranolol LA (Inderal LA) 60 MG 24 hr capsule, 1 capsule 1 (one) time each day at the same time., Disp: , Rfl: tiZANidine (Zanaflex) 4 MG tablet, every 8 (eight) hours., Disp: , Rfl: venlafaxine XR (Effexor XR) 150 MG 24 hr capsule, 1 (one) time each day at the same time., Disp: , Rfl: Social History: Social History Socioeconomic History Marital status: Spouse name: Not on file Number of children: Not on file Years of education: Not on file Highest education level: Not on file Occupational History Not on file Tobacco Use Smoking status: Former Types: Cigarettes Quit date: 2007 Years since quittin.1 Smokeless tobacco: Never Tobacco comments: Last smoked <10 years Vaping Use Vaping Use: Unknown Substance and Sexual Activity Alcohol use: Not Currently Comment: caffeine 1-2 cups pe day Drug use: Never Sexual activity: Yes Partners: Male Comment: Sexual problem:dryness, STDs:No, Last menstrueal period: 10 years ago Other Topics Concern Not on file Social History Narrative Not on file Social Determinants of Health Financial Resource Strain: Low Risk (2023) Overall Financial Resource Strain (CARDIA) Difficulty of Paying Living Expenses: Not hard at all Food Insecurity: No Food Insecurity (2023) Hunger Vital Sign Worried About Running Out of Food in the Last Year: Never true Ran Out of Food in the Last Year: Never true Transportation Needs: No Transportation Needs (2023) PRAPARE - Transportation Lack of Transportation (Medical): No Lack of Transportation (Non-Medical): No Physical Activity: Sufficiently Active (2023) Exercise Vital Sign Days of Exercise per Week: 4 days Minutes of Exercise per Session: 150+ min Stress: No Stress Concern Present (2023) [employer] [place] [employer] - Occupational Stress Questionnaire Feeling of Stress : Only a little Social Connections: Moderately Isolated (2023) Social Connection and Isolation Panel [NHANES] Frequency of Communication with Friends and Family: Once a week Frequency of Social Gatherings with Friends and Family: Once a week Attends [employer] Services: More than 4 times per year Active Member of Clubs or Organizations: No Attends Club or Organization Meetings: Never Marital Status: Intimate Partner Violence: Not At Risk (2023) Humiliation, Afraid, Rape, and Kick questionnaire Fear of Current or Ex-Partner: No Emotionally Abused: No Physically Abused: No Sexually Abused: No Housing Stability: Low Risk (2023) Housing Stability Vital Sign Unable to Pay for Housing in the Last Year: No Number of Places Lived in the Last Year: 1 Unstable Housing in the Last Year: No ROS: General: denies fever, chills, fatigue, malaise GI: denies abdominal pain or ulcerations with anti-inflammatory medication OBJECTIVE LE EXAM: DERM: Positive hair growth to b/l feet with good skin turgor noted. Negative openings in skin Right mid arch region has a 0.5 cm x 0.4 cm dark brown like lesion with slightly irregular borders negative elevation and negative color changes within lesion VASC: Palpable pedal pulsed b/l with warm to cool tibia to toes b/l NEURO: Gross sensation intact digits 1-10 and b/l feet ORTHO: 20 degrees inversion and 10 degrees eversion STJ b/l. Ankle ROM less than 10 degrees b/l. Positive pain on palpation to right medial calcaneal tubercle Positive pain palpation of right Achilles tendon with negative palpable Orla ASSESSMENT 1. Plantar fasciitis 2. Contracture of right ankle 3. Neoplasm of uncertain behavior of skin 4. Right Achilles tendinitis PLAN Patient is to continue with stretching excercizes daily with patient to continue with night stretching splint or manual stretching. Pt given steroid injection to right medial calcaneal tubercle under US guidance with visualization of injected fluid into area of concern per imaging. Injection of 1cc kenalog 10 and 2cc xylocaine 2% plain. Informed patient of risks and benefits of injection including non resolution of symptoms,steroid flare, tendon damage or rupture. Pt consents to proceed. This is the patients 2nd injection Recommended to apply ice to affected areas for 20 minutes, twice daily. Ice should not be applied directly to skin. Patient to continue with oral anti - inflammatories as needed for pain and recommended OTC medications such as tylenol or Ibuprofen Discussed possible inserts in the future Omar Ramos DPM documented in this encounter [facility] Evaluation note Note Date & Type Note Facility Evaluation note Diagnosis Right Achilles tendinitis- Primary Plantar fasciitis Plantar fascial fibromatosis Contracture of right ankle Neoplasm of uncertain behavior of skin documented in this encounter [facility] Evaluation note Note Date & Type Note Facility Evaluation note Diagnosis Right Achilles tendinitis- Primary Contracture of right ankle documented in this encounter [facility] Summary Purpose Family History No Family History Records FoundNo Family History Records FoundNo Family History Records Found Advance Directives No Advanced Directives Records FoundNo Advanced Directives Records FoundNo Advanced Directives Records Found Additional Source Comments INFORMATION SOURCE (unrecogn ized section and content) DATE CREATED AUTHOR 08/23/2021 [facility] DATE CREATED AUTHOR AUTHOR'S ORGANIZ ATION 05/06/[address] [facility] DATE CREATED AUTHOR AUTHOR'S ORGANIZ ATION 07/29/2023 [facility] d[facility] Specialists EPIC Care Teams (unrecognized sec tion and content) Lumber Checker Relationship Specialty Start Date End Date Sg Hernández MD [address] [facility] [address] [place] [address] PCP - General Family Medicine 10/03/22 Sg Hernández MD [address] [facility] [address] [place] [address] PCP - Devoted 02/25/23 Lumber Checker Relationship Specialty Start Date End Date Sg Hernández MD [address] [facility] [address] [place] [address] PCP - General Family Medicine 10/03/22 Sg Hernández MD [address] [facility] [address] [place] [address] PCP - Devoted 02/25/23 Lumber Checker Relationship Specialty Start Date End Date Sg Hernández MD [address] [facility] [address] [place] [address] PCP - General Family Medicine 10/03/22 Sg Hernández MD [address] [facility] [address] [place] [address] PCP - Devoted 02/25/23 Lumber Checker Relationship Specialty Start Date End Date Sg Hernández MD [address] [facility] [address] [place] [address] PCP - General Family Medicine 10/03/22 Sg Hernández MD [address] [facility] [address] [place] [address] PCP - Devoted 02/25/23 Reason for Visit (unrecogniz ed section and content) Reason Comments Plantar Fasciitis Rt PF pain Reason Comments Foot Pain Rt Foot Pain FOR RECORDS PERTAINING TO PATIENTS WHO ARE OR HAVE BEEN ENROLLED IN A CHEMICAL DEPENDENCY/SUBSTANCEABUSE PROGRAM, SOME INFORMATION MAY BE OMITTED. This clinical summary was aggregated from multiple sources. Caution should be exercised in using it in the provision of clinical care. This summary normalizes information from multiple sources, and as a consequence, information in this document may materially change the coding, format and clinical context of patient data. In addition, data may be omitted in some cases. CLINICAL DECISIONS SHOULD BE BASED ON THE PRIMARY CLINICAL RECORDS. [facility]. provides no warranty or guarantee of the accuracy or completeness of information in this document.
--- NOTE | 2023-07-31 12:38 | XR_ITS ---
The [address] [address] Patient Name: JENNY WEAVER MRN: [id number] date: 1960 Sex: F Assigned Patient Location: CARD Current Patient Location: CARD Accession/Order Number: [id number] Exam Date: 07/31/2023 12:59 Report Date: 07/31/2023 13:26 At the request of: LISBETH GAMBINO Procedure: XR chest 2V EXAM: XR chest 2V HISTORY: Preoperative Exam [id number] COMPARISON: None. TECHNIQUE: PA and lateral views of the chest. FINDINGS: The cardiomediastinal silhouette is normal. No focal consolidation is identified. There is no pneumothorax. No pleural effusion is noted. The osseous structures are intact. XR/XR chest 2V IMPRESSION: No acute cardiopulmonary process. Electronically authenticated by: RACHELLE ROMAN Date: 07/31/2023 13:26
== END 2023-07-31 12:17 | disposition home or self-care (01) ==
PROVIDERS: PCP Family Medicine
DX: Z01.810 Encounter for preprocedural cardiovascular examination (principal)
CPT/HCPCS: 71046; 93005

== ENCOUNTER 2023-08-28 13:55 | Outpatient (OUT) | payer OTHER, SELFPAY ==
--- NOTE | 2023-08-28 14:00 | CA_ITS ---
Patient Name: JENNY WEAVER MR#: [id number] : 1960 Exam Date: 08/28/2023 Ordering Doctor: DR GT ORONA M.D. ECHOCARDIOGRAM REPORT PROCEDURE: CA ECHO DOPPLER COMPLETE INDICATIONS: Heart murmur, hypertension COMPARISON: None. DESCRIPTION: COMPLETE ECHOCARDIOGRAM Real-time transthoracic echocardiography with 2D, M-mode, spectral and color flow Doppler performed. QUALITY: Technical quality was good. 63 , 162#, BSA 1.77 m2, BP 140/68 LEFT VENTRICLE: Normal chamber size. Thickened septal wall. Normal systolic function. LV EF: Normal left ventricular ejection fraction, (60-65%). DIASTOLIC: Diastolic function is indeterminate. ATRIAL SEPTUM: Visually appears intact. LEFT ATRIUM: Normal chamber size. RIGHT ATRIUM: Normal chamber size. RIGHT VENTRICLE: Normal chamber size. Normal right ventricular systolic function. TRICUSPID VALVE: Normal mobility and thickness. No stenosis with trivial regurgitation. Doppler studies reveal mildly (35-45) elevated right sided pressures. RVSP 38 mmHg MITRAL VALVE: Mildly thickened with normal mobility. No evidence of mitral valve stenosis. There is no mitral annular calcification. trivial mitral regurgitation. AORTIC VALVE: Unable to rule out bicuspid valve. Moderately calcified aortic valve. Moderately diminished mobility. Doppler velocity suggests moderate aortic valve stenosis. Peak velocity 2.7 m/s, mean gradient 13 mmHg. DVI 0.37, JAZMIN 1.3 cm?. Mild aortic regurgitation. AORTIC ROOT: Normal diameter and appearance. Ascending aorta and aortic arch are normal in size. PULMONIC VALVE: Normal thickness and mobility. No stenosis. Mild regurgitation. PERICARDIUM: No evidence of pericardial effusion. IVC: Collapses with inspirations. IVC is normal in size. PLEURA: CONCLUSION: 1. Left ventricular systolic function is normal. LVEF is 60 to 65%. 2. Normal right ventricular size and systolic function. 3. Moderate aortic valve stenosis with mild regurgitation. Cannot rule out bicuspid aortic valve. 4. Mildly elevated right-sided pressures. Adult Echocardiography Procedure Report Left Ventricle LVEDD (3.7 - 5.6 cm): 3.54 cm LVESD (2.2 - 4.0 cm): 1.98 cm LVIVS thickness (0.6 - 1.2 cm): 1.24 cm LVPW thickness (0.5 - 1.0 cm): 0.84 cm e': 0.08 m/s E - e': 8.87 LVOT Max Gradient: 4.06 mm[Hg] LVOT Area (cm2): 1.01 m/s Peak Velocity (LVOT): 1.01 m/s Mean Velocity (LVOT): 0.73 m/s LVOT Diameter 2.06 cm Left Atrium LA Volume Index (2D A2C): 29.22 ml/m2 Left Atrium Systolic Dimension: 3.69 cm Mitral Valve MV E to A Ratio: 0.72 Mitral Valve A-Wave Peak Velocity: 0.95 m/s Mitral Valve E-Wave Peak Velocity: 0.68 m/s Right Ventricle Aorta AO Root Diam: 2.69 cm Ascending Ao Diam: 2.26 cm Aortic Valve AoV Area (Peak Lucas): 1.25 cm2, 1.56 cm2 AoV Area (VTI): 1.37 cm2, 1.57 cm2 Peak Velocity(Antegrade Flow): 2.15 m/s, 2.18 m/s, 2.70 m/s Peak Gradient(Antegrade Flow): 18.56 mm[Hg], 19.06 mm[Hg], 29.11 mm[Hg] Mean Velocity(Antegrade Flow): 1.42 m/s, 1.55 m/s, 1.60 m/s Mean Gradient(Antegrade Flow): 9.62 mm[Hg], 10.60 mm[Hg], 12.70 mm[Hg] Velocity Time Integral: 47.71 cm, 48.86 cm, 54.88 cm Tricuspid Valve Peak Velocity (Regurgitant Flow): 2.51 m/s, 2.96 m/s, 2.90 m/s Pulmonic Valve Peak Gradient: 3.96 mm[Hg], 2.94 mm[Hg] Right Atrium Right Atrium Systolic Pressure: 32.22 ml, 32.22 ml Dictated by: Emmett Martinez M.D. on 08/28/2023 at 19:30 Approved by: Emmett Martinez M.D. on 08/28/2023 at 19:37
--- NOTE | 2023-08-28 14:44 | XR_ITS ---
[address] [address] Patient Name: JENNY WEAVER MRN: [id number] date: 1960 Sex: F Assigned Patient Location: CARD Current Patient Location: CARD Accession/Order Number: [id number] Exam Date: 08/28/2023 14:55 Report Date: 08/28/2023 16:06 At the request of: GT ORONA Procedure: XR DEXA axial skeleton EXAMINATION: XR DEXA axial skeleton HISTORY: Estrogen deficiency E28.39 COMPARISON: DEXA bone densitometry 09/09/2013 TECHNIQUE: Dual-energy X-ray absorptiometry (DXA) was performed. FINDINGS: SPINE ANALYSIS: Average bone mineral density is 1.260 g/cm2. T-score (standard deviation relative to young adult mean): 0.7 . +17.3% change since prior study. HIP ANALYSIS: Lowest bone mineral density is within the left femoral neck, 0.724 g/cm2. T-score (standard deviation relative to young adult mean): -2.3 . -4.4% change since prior study. XR/XR DEXA axial skeleton IMPRESSION: [employer] Classification: Osteopenia - Moderate Fracture Risk Electronically authenticated by: SUZETTE JUAN Date: 08/28/2023 16:06
--- NOTE | 2023-08-28 14:45 | MM_ITS ---
Patient Name: JENNY WEAVER MR#: [id number] : 1960 Exam Date: 08/28/2023 Ordering Doctor: DR GT ORONA M.D. RADIOLOGY REPORT PROCEDURE: MM TOMOSYNTHESIS SCREENING BI COMPARISON: MG MAMM SCREEN JEIMY W CAD, 06/29/2020. MG MAMM SCREEN JEIMY W CAD, 04/15/2019. MG MAMM SCREEN JEIMY W CAD, 10/20/2016. MG MAMM JEIMY SCRN W CAD DIG, 09/09/2013. INDICATIONS: screening Calculator Name NCI Breast Cancer Risk Assessment Tool 5 Year Breast Cancer Risk 2.20% Lifetime Breast Cancer Risk 8.30% Personal Breast Cancer No Personal Ovarian Cancer No Treatments None Family Cancers Aunt-maternal with breast cancer at age 42. LOCATION: [facility] BREAST COMPOSITION: Scattered areas fibroglandular density. FINDINGS: DIAGNOSTIC CATEGORY 2--BENIGN FINDING: RIGHT BREAST: No significant suspicious finding. Scattered benign-appearing calcifications are present. No significant change has occurred. LEFT BREAST: No significant suspicious finding. Scattered benign-appearing calcifications are present. No significant change has occurred. RECOMMENDATIONS: ROUTINE MAMMOGRAM AND CLINICAL EVALUATION IN 12 MONTHS. PLEASE NOTE: A NORMAL MAMMOGRAM DOES NOT EXCLUDE THE POSSIBILITY OF BREAST CANCER. A CLINICALLY SUSPICIOUS PALPABLE LUMP SHOULD BE BIOPSIED. Dictated by: Akbar Murray M.D. on 08/29/2023 at 15:02 Approved by: Akbar Murray M.D. on 08/29/2023 at 15:07
== END 2023-08-28 13:56 | disposition home or self-care (01) ==
LOC: CARD 13:55
PROVIDERS: PCP Family Medicine; Visit Provider Family Medicine
DX: Z12.31 Encounter for screening mammogram for malignant neoplasm of breast (principal); E28.39 Other primary ovarian failure; R01.1 Cardiac murmur, unspecified; Z80.3 Family history of malignant neoplasm of breast; M85.80 Other specified disorders of bone density and structure, unspecified site
CPT/HCPCS: 77063; 77067; 77080; 93306

== ENCOUNTER 2024-01-01 16:51 | Outpatient (OUT) | payer OTHER, SELFPAY ==
[2024-01-01 17:08] LABS: Basophils Absolute Auto 0.1 10^3/uL (0.0-0.1); Basophils Percent Auto 1.7 % (0.2-2.0); Eosinophils Absolute Auto 0.6 10^3/uL (0.0-0.7); Eosinophils Percent Auto 7.3 % (0.9-7.0); Hematocrit 41.4 % (36.0-48.0); Hemoglobin 13.7 g/dL (12.0-16.0); Immature Granulocytes Abs Auto 0.01 10^3/uL (0.00-0.03); Immature Granulocytes Pct Auto 0.1 % (0.0-0.5); Lymphocytes Absolute Auto 3.4 10^3/uL (1.2-3.8); Lymphocytes Percent Auto 43.7 % (20.5-60.0); Mean Corpuscular HGB Conc 33.1 g/dL (29.9-35.2); Mean Corpuscular Hemoglobin 30.4 pg (26.7-34.0); Mean Corpuscular Volume 91.8 fL (81.0-99.0); Monocytes Absolute Auto 0.6 10^3/uL (0.3-0.8); Monocytes Percent Auto 7.3 % (1.7-12.0); Neutrophils Absolute Auto 3.1 10^3/uL (1.4-6.5); Neutrophils Percent Auto 39.9 % (43.0-75.0); Platelet Count 277 10^3/uL (150-450); Red Blood Count 4.51 10^6/uL (4.20-5.40); Red Cell Distribution Width 13.4 % (11.0-15.0); White Blood Count 7.8 10^3/uL (4.0-11.0)
--- OUTSIDE RECORDS SUMMARY | 2024-01-01 17:15 | XMS_ITS | CCD ---
Author Organization [facility] Care Team Providers Care Make Up Arranger Name Role Phone [facility] Unava ilable PAY, DR CALLEJAS Attending Unavailable PAY, DR CALLEJAS Admitting Unavailable PAY, DR CALLEJAS Consulting Unavailable FRANCISCA MCGEE Attending Unavailable FRANCISCA MCGEE Admitting Unavailable ADWOA, DR DEL REAL Primary Care Unavailable FRANCISCA MCGEE Consulting Unavailable CHELSEA GRECO Admitting Unavailable CHELSEA GRECO Consulting Unavailable [facility] Unava ilable CHELSEA GRECO Attending Unavailable Sg Orona MD Primary Care Provider Sg Orona MD Unavailable OMAR RAMOS Attending Unavailable OMAR RAMOS Attending Unavailable OMAR RAMOS Attending Unavailable TANESHA FERRARO Attending Unavailable SG ORONA Referring Unavailable OMAR RAMOS Attending Unavailable SG ORONA Attending Unavailable OMAR RAMOS Attending Unavailable OMAR RAMOS Attending Unavailable OMAR RAMOS Attending Unavailable OMAR RAMOS Attending Unavailable SONJA ALEJANDRA Attending Unavailable OMAR RAMOS Referring Unavailable SONJA ALEJANDRA Attending Unavailable OMAR RAMOS Referring Unavailable OMAR RAMOS Attending Unavailable VANESSA JACOBSON Attending Unavailable OMAR RAMOS Referring Unavailable OMAR RAMOS Attending Unavailable VANESSA JACOBSON Attending Unavailable OMAR RAMOS Referring Unavailable Allergies Allergy Classification Reported Allergen(s) Allergy Type Date of Onset Reaction(s) Facility (1 source) Plasmin Drug Allergy 07-20-2016 [facility] (1 source) topiramate Drug Allergy [facility] (6 sources) SUMAtriptan Drug Allergy 02-08-2023 [facility] (6 sources) topiramate Drug Allergy 02-08-2023 [facility] Medications Current Medications Medication Drug Class(es) [...] 07-05-2023 Chronic Other aftercare (1 source) Other pen[facility]iary (current) drug therapy; Translations: [OTH PENITENTIARY CURRENT DRUG THERAPY] Onset: 2022 Episodic Other [...] 02-04-2022 BASO # 0.0 103/ul Normal 0.0-0.1 [facility] Comment on above: Performed By: #### C BC #### [facility] [address] [address] [address] Sarah Peña Basophils/100 WBC (Bld) 0.4 % Normal 0.2-2.0 [facility] Comment on above: Performed By: #### C BC #### [facility] [address] [place] [address] Dr. Sarah Peña EO # 0.0 103/ul Normal 0.0-0.7 [facility] Comment on above: Performed By: #### C BC #### [facility] [address] [place] [address] Dr. Sarah Peña Eosinophils/100 WBC (Bld) 0.5 % Critically low 0.9-7.0 [facility] Comment on above: Performed By: #### C BC #### [facility] [address] [place] [address] Dr. Sarah Peña Erythrocyte distribution width (RBC) [Ratio] 13.1 % Normal 11.0-15.0 [facility] Comment on above: Performed By: #### C BC #### [facility] [address] [place] [address] Dr. Sarah Peña Hematocrit (Bld) [Volume fraction] 46.0 % Normal 36.0-48.0 [facility] Comment on above: Performed By: #### C BC #### [facility] [address] [place] [address] Dr. Sarah Peña Hemoglobin (Bld) [Mass/Vol] 15.3 g/dL Normal 12.0-16.0 [facility] Comment on above: Performed By: #### C BC #### [facility] [address] [place] [address] Dr. Sarah Peña IG # 0.01 10e3/ul Normal 0.00-0.03 [facility] Comment on above: Performed By: #### C BC #### [facility] [address] [place] [address] Dr. Sarah Peña IG % 0.2 % Normal 0.0-0.5 [facility] Comment on above: Performed By: #### C BC #### [facility] [address] [place] [address] Dr. Sarah Peña LYMPH # 1.8 103/ul Normal 1.2-3.8 [facility] Comment on above: Performed By: #### C BC #### [facility] [address] [place] [address] Dr. Sarah Peña Lymphocytes/100 WBC (Bld) 32.5 % Normal 20.5-60.0 [facility] Comment on above: Performed By: #### C BC #### [facility] [address] [place] [address] Dr. Sarah Peña MANUAL DIFF REQ NO Normal [facility] Comment on above: Performed By: #### C BC #### [facility] [address] [place] [address] Dr. Sarah Peña MCH (RBC) [Entitic mass] 29.8 pg Normal 26.7-34.0 [facility] Comment on above: Performed By: #### C BC #### [facility] [address] [place] [address] Dr. Sarah Peña MCHC (RBC) [Mass/Vol] 33.3 g/dL Normal 29.9-35.2 [facility] Comment on above: Performed By: #### C BC #### [facility] [address] [place] [address] Dr. Sarah Peña MCV (RBC) [Entitic vol] 89.5 fL Normal 81.0-99.0 [facility] Comment on above: Performed By: #### C BC #### [facility] [address] [place] [address] Dr. Sarah Peña MONO # 0.6 103/ul Normal 0.3-0.8 [facility] Comment on above: Performed By: #### C BC #### [facility] [address] [place] [address] Dr. Sarah Peña Monocytes/100 WBC (Bld) 10.8 % Normal 1.7-12.0 [facility] Comment on above: Performed By: #### C BC #### [facility] [address] [place] [address] Dr. Sarah Peña NEUT # 3.1 103/ul Normal 1.4-6.5 [facility] Comment on above: Performed By: #### C BC #### [facility] [address] [place] [address] Dr. Sarah Peña Neutrophils/100 WBC (Bld) 55.6 % Normal 43.0-75.0 [facility] Comment on above: Performed By: #### C BC #### [facility] [address] [place] [address] Dr. Sarah Peña Platelet mean volume (Bld) [Entitic vol] 9.8 fL Normal 9.5-13.5 [facility] Comment on above: Performed By: #### C BC #### [facility] [address] [place] [address] Dr. Sarah Peña PLT 245 103/ul Normal 150-450 [facility] Comment on above: Performed By: #### C BC #### [facility] [address] [place] [address] Dr. Sarah Peña RBC 5.14 106/ul Normal 4.20-5.40 [facility] Comment on above: Performed By: #### C BC #### [facility] [address] [place] [address] Dr. Sarah Peña WBC 5.5 103/ul Normal 4.0-11.0 [facility] Comment on above: Performed By: #### C BC #### [facility] [address] [place] [address] Dr. Sarah Peña PROF CHEM 8 (BAS METB)on Anion gap [Moles/Vol] 14.7 mmol/L Normal [facility] Comment on above: Performed By: #### B MP #### [facility] [address] [place] [address] Dr. Sarah Peña Calcium [Mass/Vol] 9.7 mg/dL Normal 8.5-10.1 [facility] Comment on above: Performed By: #### B MP #### [facility] [address] [address] [address] Sarah Peña Chloride [Moles/Vol] 98 mmol/L Normal 98-107 [facility] Comment on above: Performed By: #### B MP #### [facility] [address] [address] [address] Sarah Peña CO2 [Moles/Vol] 29.0 mmol/L Normal 21.0-32.0 [facility] Comment on above: Performed By: #### B MP #### [facility] [address] [address] [address] Sarah Peña Creatinine [Mass/Vol] 0.96 mg/dL Normal 0.55-1.02 [facility] Comment on above: Performed By: #### B MP #### [facility] [address] [address] [address] Sarah Peña EGFR-AF CZECH >60 Normal >=60 [facility] Comment on above: Performed By: #### B MP #### [facility] [address] [address] [address] Sarah Peña EGFR-NON AF CZECH 59 mL/min/1.73m2 Critically low >=60 [facility] Comment on above: Performed By: #### B MP #### [facility] [address] [address] [address] Sarah Peña Glucose [Mass/Vol] 110 mg/dL Critically high 74-106 [facility] Comment on above: Performed By: #### B MP #### [facility] [address] [address] [address] Sarah Peña Potassium [Moles/Vol] 2.7 mmol/L Critically low 3.5-5.1 [facility] Comment on above: Performed By: #### B MP #### [facility] [address] [address] [address] Sarah Peña Sodium [Moles/Vol] 139 mmol/L Normal 136-145 [facility] Comment on above: Performed By: #### B MP #### [facility] [address] [address] [address] Sarah Peña Urea nitrogen [Mass/Vol] 14.0 mg/dL Normal 7.0-18.0 [facility] Comment on above: Performed By: #### B MP #### [facility] [address] [address] [address] Sarah Peña Urea nitrogen/Creatinine [Mass ratio] 14.6 mg/mg Normal [facility] Comment on above: Performed By: #### B MP #### [facility] [address] [address] [address] Sarah Peña Complete Blood Count Auto Di ffon 07-21-2021 Basophils (Bld) [#/Vol] 0.1 10*3/uL Normal 0.0-0.2 [facility] Comment on above: Result Comment: PERF ORMED BY: [place] [address] PATHOLOGIST BEHAVIORIST ERINN BANEGAS M.D. Performed By: #### C MP, CBC #### [address] Basophils/100 WBC (Bld) 1.2 % Normal . [facility] Comment on above: Performed By: #### C MP, CBC #### [place] [address] [place] Eosinophils (Bld) [#/Vol] 0.3 10*3/uL Normal 0.0-0.45 [facility] Comment on above: Performed By: #### C MP, CBC #### [place] [address] [place] Eosinophils/100 WBC (Bld) 3.5 % Normal . [facility] Comment on above: Performed By: #### C MP, CBC #### [address] Erythrocyte distribution width (RBC) [Ratio] 13.9 % Normal 11.9-15.3 [facility] Comment on above: Performed By: #### C MP, CBC #### [address] Hematocrit (Bld) [Volume fraction] 39.2 % Normal 34.0-46.4 [facility] Comment on above: Performed By: #### C MP, CBC #### [facility] [address] Hemoglobin (Bld) [Mass/Vol] 13.7 g/dL Normal 11.8-15.4 [facility] Comment on above: Performed By: #### C MP, CBC #### [facility] [address] Lymphocytes (Bld) [#/Vol] 2.8 10*3/uL Normal 1.00-4.8 [facility] Comment on above: Performed By: #### C MP, CBC #### [facility] [address] Lymphocytes/100 WBC (Bld) 35.0 % Normal . [facility] Comment on above: Performed By: #### C MP, CBC #### [facility] [address] MCH (RBC) [Entitic mass] 31.6 pg Normal 24.7-34.3 [facility] Comment on above: Performed By: #### C MP, CBC #### [facility] [address] MCV (RBC) [Entitic vol] 90.7 fL Normal 80-100 [facility] Comment on above: Performed By: #### C MP, CBC #### [facility] [address] Mean Corpuscular HGB Conc 34.9 g/dL Normal 32.0-35.0 [facility] Comment on above: Performed By: #### C MP, CBC #### [facility] [address] [place] [address] [place] Monocytes (Bld) [#/Vol] 0.7 10*3/uL Normal 0.0-0.8 [facility] Comment on above: Performed By: #### C MP, CBC #### [facility] [address] [place] [address] [place] Monocytes/100 WBC (Bld) 8.2 % Normal . [facility] Comment on above: Performed By: #### C MP, CBC #### [facility] [address] [place] [address] [place] Neutrophils (Bld) [#/Vol] 4.2 10*3/uL Normal 1.8-7.7 [facility] Comment on above: Performed By: #### C MP, CBC #### [facility] [address] [place] [address] [place] Neutrophils/100 WBC (Bld) 52.1 % Normal . [facility] Comment on above: Performed By: #### C MP, CBC #### [facility] [address] [place] [address] [place] Nucleated RBC/100 WBC (Bld) [Ratio] 0.1 % Normal 0-0.5 [facility] Comment on above: Performed By: #### C MP, CBC #### [facility] [address] Platelet mean volume (Bld) [Entitic vol] 7.9 fL Normal 6.3-10.7 [facility] Comment on above: Performed By: #### C MP, CBC #### [facility] [address] [place] [address] [place] Platelets (Bld) [#/Vol] 318 10*3/uL Normal 150-450 [facility] Comment on above: Performed By: #### C MP, CBC #### [facility] [address] [place] [address] [place] RBC (Bld) [#/Vol] 4.33 10*6/uL Normal 3.60-5.00 [facility] Comment on above: Performed By: #### C MP, CBC #### [facility] [address] [place] [address] [place] WBC (Bld) [#/Vol] 8.0 10*3/uL Normal 4.5-11.0 [facility] Comment on above: Performed By: #### C MP, CBC #### [facility] [address] Comprehensive Metabolic Pane jose 07-21-2021 Albumin [Mass/Vol] 4.3 g/dL Normal 3.2-5.5 [facility] Comment on above: Performed By: #### C MP, CBC #### [facility] [address] Albumin/Globulin [Mass ratio] 1.4 {ratio} Normal [facility] Comment on above: Performed By: #### C MP, CBC #### [facility] [address] ALP [Catalytic activity/Vol] 84 U/L Normal 32-92 [facility] Comment on above: Result Comment: PERF ORMED BY: [place] [address] PATHOLOGIST BEHAVIORIST ERINN BANEGAS M.D. Performed By: #### C MP, CBC #### [address] ALT [Catalytic activity/Vol] 23 U/L Normal 10-60 [facility] Comment on above: Performed By: #### C MP, CBC #### [facility] [address] [place] [address] [place] AST [Catalytic activity/Vol] 23 U/L Normal 10-42 [facility] Comment on above: Performed By: #### C MP, CBC #### [address] Bilirubin [Mass/Vol] 0.6 mg/dL Normal 0.3-1.2 [facility] Comment on above: Performed By: #### C MP, CBC #### [facility] [address] [place] [address] [place] Calcium [Mass/Vol] 9.3 mg/dL Normal 8.2-10.2 [facility] Comment on above: Performed By: #### C MP, CBC #### [facility] [address] [place] [address] [place] Chloride [Moles/Vol] 101 mmol/L Normal 95-114 [facility] Comment on above: Performed By: #### C MP, CBC #### [address] [address] [place] CO2 [Moles/Vol] 27.5 mmol/L Normal 22.0-30.0 [facility] Comment on above: Performed By: #### C MP, CBC #### [address] Creatinine [Mass/Vol] 1.11 mg/dL High 0.44-1.03 [facility] Comment on above: Performed By: #### C MP, CBC #### [place] [address] [place] Estimated GFR ( Elsa 60 [facility] Comment on above: Result Comment: GFR estimated reference range: According to KDOQI guidelines, <60 ml/min/1.73m2 is sufficient to diagnose a patient with chronic kidney disease. Performed By: #### C MP, CBC #### [address] Estimated GFR (Non- Am 50 Normal [facility] Comment on above: Performed By: #### C MP, CBC #### [address] Globulin (S) [Mass/Vol] 3.1 g/dL Normal [facility] Comment on above: Performed By: #### C MP, CBC #### [address] Glucose [Mass/Vol] 81 mg/dL Normal 70-100 [facility] Comment on above: Result Comment: [place] Glucose Reference Range is dependent on time and content of last meal. Glucose of more than 200 mg/dL in a nonstressed, ambulatory subject supports the diagnosis of Diabetes Mellitus. ADA recommended reference range Performed By: #### C MP, CBC #### [address] Potassium [Moles/Vol] 3.7 mmol/L Normal 3.5-5.1 [facility] Comment on above: Performed By: #### C MP, CBC #### [address] Protein [Mass/Vol] 7.4 g/dL Normal 6.1-7.9 [facility] Comment on above: Performed By: #### C MP, CBC #### [facility] [address] Sodium [Moles/Vol] 140 mmol/L Normal 136-146 [facility] Comment on above: Performed By: #### C MP, CBC #### [facility] [address] [id number] [place] Urea nitrogen [Mass/Vol] 27 mg/dL High 9-23 [facility] Comment on above: Performed By: #### C MP, CBC #### [facility] [address] [id number] [facility] Vital Signs Date Time Vital Sign Value Performing Clinician Lon narvaez 07-12-2023 16:27-0500 Body height 160 cm Omar Ramos DPM Work Phone: [facility] 07-12-2023 16:27-0500 Body mass index (BMI) [Ratio] 29.23 kg/m2 Omar Ramos DPM Work Phone: [facility] 07-12-2023 16:27-0500 Body weight 74.84 kg Omar Ramos DPM Work Phone: [facility] 07-12-2023 16:27-0500 Diastolic blood pressure 80 mm[Hg] Omar Ramos DPM Work Phone: [facility] 07-12-2023 16:27-0500 Heart rate 79 /min Omar Ramos DPM Work Phone: [facility] 07-12-2023 16:27-0500 Systolic blood pressure 123 mm[Hg] Omar Ramos DPM Work Phone: [facility] 07-05-2023 15:21-0500 Body height 160 cm Omar Ramos DPM Work Phone: [facility] 07-05-2023 15:21-0500 Body mass index (BMI) [Ratio] 29.23 kg/m2 Omar Ramos DPM Work Phone: [facility] 07-05-2023 15:21-0500 Body weight 74.84 kg Omar Ramos DPM Work Phone: [facility] 07-05-2023 15:21-0500 Diastolic blood pressure 85 mm[Hg] Omar Ramos DPM Work Phone: [facility] 07-05-2023 15:21-0500 Heart rate 81 /min Omar Ramos DPM Work Phone: [facility] 07-05-2023 15:21-0500 Systolic blood pressure 133 mm[Hg] Omar Ramos DPM Work Phone: [facility] Healthcare Encounters Encounter Date Encounter Type Care Provider Facility Start: 10-25-2023 End: 10-25-2023 ambulatory VANESSA TATTERSALL Not Available Start: 10-25-2023 End: 10-25-2023 ambulatory OMAR A BROWN Not Available Start: 10-23-2023 End: 10-23-2023 ambulatory VANESSA TATTERSALL Not Available Start: 10-11-2023 End: 10-11-2023 ambulatory OMAR A BROWN Not Available Start: 10-08-2023 End: 10-08-2023 ambulatory SONJA ALEJANDRA Not Available Start: 09-27-2023 End: 09-27-2023 ambulatory SONJA ALEJANDRA Not Available Start: 09-20-2023 End: 09-20-2023 ambulatory OMAR A BROWN Not Available Start: 09-06-2023 End: 09-06-2023 ambulatory OMAR A BROWN Not Available Start: 08-30-2023 End: 08-30-2023 ambulatory OMAR A BROWN Not Available Start: 08-14-2023 End: 08-14-2023 ambulatory RUGEN M ADWOA Not Available Start: 08-09-2023 End: 08-09-2023 ambulatory OMAR A BROWN Not Available Start: 07-31-2023 End: 07-31-2023 ambulatory TANESHA H TIMMIS Not Available Start: 07-26-2023 End: 07-26-2023 ambulatory OMAR A BROWN Not Available Start: 07-12-2023 End: 07-12-2023 ambulatory OMAR RAMOS Not Available Start: 07-12-2023 End: 07-12-2023 Office outpatient visit 15 minutes Omar Ramos DPM Work Phone: [facility] Comment on above: Right Achilles tendi nitis (Primary Dx); Contracture of right ankle Start: 07-12-2023 Chart abstracting Omar cox DPM Work Phone: [facility] Start: 07-05-2023 End: 07-05-2023 ambulatory OMAR RAMOS Not Available Start: 07-05-2023 End: 07-05-2023 Office outpatient visit 15 minutes Omar Ramos DPM Work Phone: [facility] Comment on above: Right Achilles tendi nitis (Primary Dx); Plantar fasciitis; Contracture of right ankle; Neoplasm of uncertain behavior of skin Start: 07-05-2023 Chart abstracting Omar cox DPM Work Phone: [facility] Start: 04-26-2023 End: 04-26-2023 ambulatory OMAR RAMOS Not Available Start: 03-26-2023 Patient encounter procedure Omar Ramos DPM Work Phone: [facility] Healthcare Start: 05-03-2022 End: 05-03-2022 ambulatory FRANCISCA MCGEE Facility:H1 Start: 02-04-2022 End: 02-04-2022 ambulatory CHELSEA GRECO Facility:[facility] Start: 01-04-2022 End: 01-04-2022 ambulatory [facility] Facility:[facility]1 Procedures Date Procedure Procedure Detail Performing [...] [address] [place] [address] Tanesha Ferraro MD [address] [place] [address] [facility] Start: 07-26-2023 End: 07-26-2023 Patient encounter procedure 07/26/2023 3:50 PM EST Office Visit [facility] [address] [place] [address] Omar Ramos, DPM [address] [address] [facility] Start: 07-19-2023 End: 07-19-2023 Clinical Support 07/19/2023 4:10 PM EST Clinical Support [facility] [address] [place] [address] Omar Ramos, DPM [address] [address] [facility] Start: 07-12-2023 End: 07-12-2023 Patient encounter procedure 07/12/2023 4:20 PM EST Office Visit [facility] [address] [place] [address] Omar Ramos, DPM [address] [address] [facility] Start: 07-05-2023 End: 07-05-2023 Patient encounter procedure 07/05/2023 3:20 PM EST Office Visit [facility] [address] [place] [address] Omar Ramos, DPM [address] [facility] [address] [place] [address] [facility] Start: 06-29-2021 Screening for malign ant neoplasm of breast Mammogram [facility] Start: 04-28-2019 Screening for malign ant neoplasm of colon Colonoscopy [facility] Start: 02-14-1988 Screening for malign ant neoplasm of cervix [facility] Start: 1979 Screening for malign ant neoplasm of cervix Pap Smear [facility] Start: 1958 Screening for malign ant neoplasm of colon [facility] Immunizations Immunization Date Immunization Notes Care Provider Fa cility 03-26-2023 Pneumococcal Conjuga te PCV 20 Omar Ramos DPM Work Phone: [facility] 03-26-2023 zoster vaccine recombinant Omar Ramos DPM Work Phone: [facility] 02-27-2022 influenza, injectabl e, quadrivalent, preservative free Omar Ramos DPM Work Phone: [facility] 02-27-2022 influenza virus vacc ine, unspecified formulation Omar Ramos DPM Work Phone: [facility] 02-17-2022 Influenza, injectabl e, Madin Gloria Canine Kidney, preservative free, quadrivalent Omar Ramos DPM Work Phone: [facility] 02-16-2021 influenza, injectabl e, quadrivalent, preservative free Omar Ramos DPM Work Phone: [facility] 02-10-2020 Influenza, injectabl e, Madin Bradley Canine Kidney, preservative free, quadrivalent Omar Ramos DPM Work Phone: [facility] 02-17-2019 Influenza, injectabl e, Madin Bradley Canine Kidney, preservative free, quadrivalent Omar Ramos DPM Work Phone: [facility] 03-06-2018 Influenza, injectabl e, Madin Gloria Canine Kidney, preservative free, quadrivalent Omar Ramos DPM Work Phone: [facility] 03-06-2017 seasonal influenza, intradermal, preservative free Omar Ramos DPM Work Phone: [facility] 06-07-2012 tetanus toxoid, redu landen diphtheria toxoid, and acellular pertussis vaccine, adsorbed Omar Richard DPM Work Phone: [facility] 08-01-2011 hepatitis B vaccine, adult dosage Omar Ramos DPM Work Phone: [facility] 03-02-2011 hepatitis B vaccine, adult dosage Omar Ramos DPM Work Phone: [facility] 01-24-2011 hepatitis B vaccine, adult dosage Omar Rmaos DPM Work Phone: [facility] Payers Date Payer Category Payer Unknown [employer] [id number] 2022-Present [id number] [place], [place] [id number]. [id number] 2022 Unknown [id number] Self-pay [id number] 1959 Unknown [id number] 1958 Unknown [id number] .840.1.232028.3.579.2.593 1958 Unknown [id number] ..840.1.964071.3.579.2.593 1958 Unknown [id number] 2.16.840.1.566387.3.579.2.593 1958 Unknown [id number] 2.16.840.1.234426.3.579.2.1259 1958 Unknown [id number] 2.16.840.1.170574.3.579.2.1259 1958 Unknown [id number] 2.16.840.1.832839.3.579.2.1258 1958 Unknown [id number] 2.16.840.1.358209.3.579.2.1258 1958 Unknown [id number] 2.16.840.1.675669.3.579.2.1258 1958 Unknown [id number] 2.16.840.1.332646.3.579.2.1258 1958 Unknown [id number] 2.16.840.1.371438.3.579.2.1258 1958 Unknown [id number] 2.16.840.1.843442.3.579.2.1258 1958 Unknown [id number] 2.16.840.1.505693.3.579.2.1258 1958 Unknown [id number] 2.16.840.1.598719.3.579.2.1258 1958 Unknown [id number] 2.16.840.1.692278.3.579.2.1258 1958 Unknown [id number] 2.16.840.1.615947.3.579.2.1258 1958 Unknown [id number] 2.16.840.1.487022.3.579.2.1258 1958 Unknown [id number] 2.16.840.1.277931.3.579.2.1258 1958 Unknown [id number] 2.16.840.1.789191.3.579.2.1258 1958 Unknown [id number] 2.16.840.1.439096.3.579.2.1259 Social History Date Type Detail Facility Start: 07-05-2023 Tobacco smoking status MTIS Ex-smoke r [facility] Healthcare End: 05-28-2007 History of tobacco use Current smoker [facility] Healthcare End: 05-28-2007 History of tobacco use Cigarette Smoker [facility] Start: 07-05-2023 Tobacco use and exposure [...] - these days [OSQ] Only a little [facility] (I/We) worried wheth er (my/our) food would run out before (I/we) got money to buy more. Never true [facility] Start: 07-05-2023 Tobacco Comment Last smoked <10 year s [facility] Start: 03-12-2023 Alcohol Comment caffeine 1-2 cups pe day [facility] Start: 1960 Sex Assigned At Female [facility] Start: 01-24-2023 Gender identity Identifies as female gender (finding) [facility] History of Present illness Narrative 07-12-2023 Omar Ramos DPM - 07/12/2023 4:20 PM EST Note Date & Type Note Facility 07-12-2023 History of Presen t illness Narrative Patient: Trista Weaver : 1960 PCP: Sg Orona MD SUBJECTIVE Patient presents today for follow [...] min Stress: No Stress Concern Present (2023) [employer] - Occupational Stress Questionnaire Feeling of Stress : Only a little Social Connections: Moderately Isolated (2023) Social Connection and Isolation Panel [NHANES] Frequency of Communication with Friends and Family: Once a week Frequency of Social Gatherings with Friends and Family: Once a week Attends Spiritism Services: More than 4 times per year [...] of right Achilles tendon with negative palpable [place] ASSESSMENT 1. Right Achilles tendinitis 2. Contracture of right ankle PLAN Patient is to continue with stretching excercizes daily with patient to continue with night stretching splint or manual stretching. Recommended to apply ice to affected areas for 20 minutes, twice daily. Ice should not be applied directly to skin. Patient placed on Medrol pack Pt dispensed pneumatic CAM walker ([id number]) today to maintain 90 degree foot to [...] of Presen t illness Narrative Patient: Trista Mojicaeloy : 1960 PCP: Sg Orona MD SUBJECTIVE Patient presents today for follow [...] min Stress: No Stress Concern Present (2023) [employer] - Occupational Stress Questionnaire Feeling of Stress : Only a little Social Connections: Moderately Isolated (2023) Social Connection and Isolation Panel [NHANES] Frequency of Communication with Friends and Family: Once a week Frequency of Social Gatherings with Friends and Family: Once a week Attends Spiritism Services: More than 4 times per year [...] of right Achilles tendon with negative palpable [place] ASSESSMENT 1. Plantar fasciitis 2. Contracture of [...] DPM documented in this encounter [facility] Evaluation [...] section and content) DATE CREATED AUTHOR 08/23/2021 [facility] DATE CREATED AUTHOR AUTHOR'S ORGANIZ ATION 05/06/2022 [facility] DATE CREATED AUTHOR AUTHOR'S ORGANIZ ATION 10/26/2023 [facility] EPIC Care Teams (unrecognized sec tion and content) Make Up Arranger Relationship Specialty Start Date End Date Sg Orona MD [address] [facility] [address] [place] [address] PCP - General Family Medicine 10/03/22 Sg Orona MD [address] [facility] [address] [place] [address] PCP - Devoted 02/25/23 Make Up Arranger Relationship Specialty Start Date End Date Sg Orona MD [address] [facility] [address] [place] [address] PCP - General Family Medicine 10/03/22 Sg Orona MD [address] [facility] [address] [place] [address] PCP - Devoted 02/25/23 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 [address] [place] [address] PCP - General Family Medicine 10/03/22 Sg Orona MD [address] [facility] [address] [place] [address] PCP - Devoted 02/25/23 Reason for Visit [...] BE BASED ON THE PRIMARY CLINICAL RECORDS. [employer] provides no warranty or guarantee of the accuracy or completeness of information in this document.
[2024-01-01 17:36] LABS: Alanine Aminotransferase 23 U/L (14-59); Albumin Globulin Ratio 1.8; Albumin Level 4.8 g/dL (3.4-5.0); Alkaline Phosphatase 88 U/L (46-116); Anion Gap 13.6; Aspartate Amino Transferase 23 U/L (15-37); BUN Creatinine Ratio 11.2; Bilirubin Total 1.1 mg/dL (0.2-1.0); Calcium 9.4 mg/dL (8.5-10.1); Carbon Dioxide 27.8 mmol/L (21.0-32.0); Chloride 107 mmol/L (98-107); Estimated GFR (African America 52 (>=60); Estimated GFR (Non-African Ame 43 (>=60); Globulin 2.7 g/dL; Glucose 69 mg/dL (74-106); Potassium 4.4 mmol/L (3.5-5.1); Sodium 144 mmol/L (136-145); Total Protein 7.5 g/dL (6.4-8.2)
== END 2024-01-01 16:52 | disposition home or self-care (01) ==
PROVIDERS: PCP Family Medicine; Visit Provider Registered Nurse
DX: M15.0 Primary generalized (osteo)arthritis (principal); M79.7 Fibromyalgia; Z79.899 Other long term (current) drug therapy
CPT/HCPCS: 36415; 80053; 85025

== ENCOUNTER 2024-09-15 23:50 | Emergency (ER) | payer MEDICARE, SELFPAY ==
[2024-09-15 23:53] VITALS: BP 195/75; PULSE 60; TEMP 36.5; O2SAT 100; BMI 26.2
--- NOTE | 2024-09-16 00:14 | ED_ITS ---
HPI HPI - General Adult General Chief complaint: Headache Stated complaint: MIGRAINE Time Seen by Provider: 09/15/24 23:52 Source: patient Mode of arrival: walk-in Limitations: no limitations History of Present Illness HPI narrative: This 64-year-old female with a history of hypertension and migraine headaches presents for evaluation of a migraine headache. This is typical migraine for h er with right sided head pain and neck pain. Symptoms started yesterday. She has taken a leftover tramadol and Tylenol without significant improvement. Her headache is associated with nausea, photophobia and phonophobia. She has no focal weakness numbness or tingling. There was no thunderclap presentation of the headache and again she states this is a typical migraine for her. She is also on propranolol for blood pressure and headaches. She denies any chest pain or shortness of breath. She denies any history of any kidney disease. She has no abdominal pain. She does have pain in her right hamstring and thinks she pulled a hamstring muscle in her leg. 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 Related Data Home Medications ?Medication ?Instructions ?Recorded ?Confirmed duloxetine 60 mg capsule,delayed mg PO 09/15/24 release levothyroxine 88 mcg tablet 88 mcg PO DAILY 09/15/24 09/15/24 (Levo-T) tizanidine 4 mg tablet mg 09/15/24 tramadol 50 mg tablet mg 09/15/24 Allergies Allergy/AdvReac Type Severity Reaction Status Date / Time sumatriptan (From Imitrex) AdvReac Severe Migraine Verified 09/15/24 23:56 topiramate (From Trokendi XR) AdvReac Severe nightmares Verified 09/15/24 23:56 Opioid HPI Opioid Management Most Recent Opioid Data: No Data to Display Review of Systems ROS Status of ROS 10 or more systems reviewed and unremark able except as noted in history and below PFSH PFSH Social History Smoking status: Never smoker Little interest or pleasure in doing things: not at all Feeling down, depressed, or hopeless: not at all Exam Narrative Exam Narrative: Vital signs and Nursing Notes reviewed: Is afebrile with a normal pulse, normal respiratory rate, blood pressure is elevated at 195/75, she is not hypoxic with pulse ox of 100% on room air General: Awake, alert, oriented, uncomfortable appearing female lying on her right side in a dark room, no respiratory distress HEENT: Normocephalic atraumatic, mucous membranes are moist and pink, eyes are clear, normal conjunctiva, vision is grossly intact, photophobia is present Neck: Supple, no meningeal signs, Chest: Lungs are clear to auscultation with good air entry, there is no wheezing rhonchi or rales appreciated no accessory muscle use, patient is speaking in complete sentences-no chest wall tenderness to palpation CVS: Regular rate and rhythm S1-S2, no murmurs rubs or gallops, pulses are brisk and equal bilaterally ABD: Soft, nondistended, nontender, no rebound guarding or rigidity, bowel sounds are normal, no pulsatile masses appreciated Extremities: Moving all extremities, no lower extremity tenderness or swelling noted, negative Homans' sign, pulses are brisk and equal bilaterally Skin: Normal in appearance without rash,pallor, petechiae or purpura Neuro: No focal deficits Constitutional Vital Signs, click to edit/add: Last Vital Signs Temp 97.7 F 09/15/24 23:53 Pulse 60 09/15/24 23:53 Resp 18 09/15/24 23:53 BP 195/75 H 09/15/24 23:53 Pulse Ox 100 09/15/24 23:53 O2 Del Method Room Air 09/15/24 23:53 Course Vital Signs Vital signs: Vital Signs Temperature 97.7 F 09/15/24 23:53 Pulse Rate 60 09/15/24 23:53 Respiratory Rate 18 09/15/24 23:53 Blood Pressure 195/75 H 09/15/24 23:53 Pulse Oximetry 100 09/15/24 23:53 Oxygen Delivery Method Room Air 09/15/24 23:53 Temperature 97.7 F 09/15/24 23:53 Pulse Rate 60 09/15/24 23:53 Respiratory Rate 18 09/15/24 23:53 Blood Pressure 195/75 H 09/15/24 23:53 Pulse Oximetry 100 09/15/24 23:53 Oxygen Delivery Method Room Air 09/15/24 23:53 Medical Decision Making MDM Narrative Medical decision making narrative: This 64-year-old female with a history of migraine headaches presents for evaluation of a migraine headache for the past 2 days which is on the right side and in her neck which is typical of her migraine headaches. She states she is under a lot of stress. 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 She denies any fevers or chills. She denies any thunderclap presentation of her headache. She has no neck stiffness or nuchal rigidity. Her stated that Phenergan and Nubain would typically for her headaches however we do not have any Nubain available in this facility. There was a limited number of Phenergan which she got is an IM injection and an IV was placed and she was medicated with IV fluids Toradol and morphine. She is feeling better after these medications and requested to be discharged home. Discharge Plan Discharge Chief Complaint: Headache Clinical Impression: Migraine Patient Disposition: Home, Self-Care Time of Disposition Decision: 01:12 Condition: Good Prescriptions / Home Meds: No Action tizanidine 4 mg tablet duloxetine 60 mg capsule,delayed release(DR/EC) PO levothyroxine [Levo-T] 88 mcg tablet 88 mcg PO DAILY tramadol 50 mg tablet Print Language: Bahraini Instructions: Migraine Headache (ED) Referrals: [facility] [Primary Care Provider] - 1 week
[2024-09-16] MEDS: 0.9 % SODIUM CHLORIDE 1,000 ML 1000 ML IV (00:31)
[2024-09-16] MEDS: MORPHINE SULFATE 4 MG/ML VIAL IV (00:32)
[2024-09-16] MEDS: PROMETHAZINE HCL 25 MG/ML VIAL 12.5 MG IM (00:32)
[2024-09-16] MEDS: KETOROLAC TROMETHAMINE 30 MG/ML VIAL IVP (00:32)
== END 2024-09-16 01:39 | disposition home or self-care (01) ==
PROVIDERS: Emergency Provider Emergency Medicine; PCP Family Medicine
DX: G43.909 Migraine, unspecified, not intractable, without status migrainosus (principal); I10 Essential (primary) hypertension; Z79.899 Other long term (current) drug therapy
CPT/HCPCS: 96361; 96372; 96374; 96375; 99284; J1885; J2270; J2550

== ENCOUNTER 2024-09-30 06:21 | Emergency (ER) | payer MEDICARE, SELFPAY ==
[2024-09-30 06:23] VITALS: BP 150/86; PULSE 65; TEMP 36.4; O2SAT 99; BMI 25.3
[2024-09-30] MEDS: PROCHLORPERAZINE 10 MG/2 ML VIAL IM (07:41)
[2024-09-30] MEDS: DIPHENHYDRAMINE HCL 50 MG/ML VIAL 25 MG IM (07:41)
[2024-09-30] MEDS: KETOROLAC TROMETHAMINE 30 MG/ML VIAL IM (07:41)
--- NOTE | 2024-09-30 08:18 | ED_ITS ---
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 The patient hit the back of her head she had no loss of consciousness she does not take any blood thinner She already had a history of migraine and she is complaining of headache right n ow Related Data Home Medications ?Medication ?Instructions ?Recorded ?Confirmed duloxetine 60 mg capsule,delayed mg PO 09/15/24 release levothyroxine 88 mcg tablet 88 mcg PO DAILY 09/15/24 0 09/30/24 (Levo-T) tizanidine 4 mg tablet mg 09/15/24 Held on 09/30/24. Instructions: Resume on 10/06/24. hold while using norflex tramadol 50 mg tablet mg 09/15/24 propranolol 60 mg capsule,24 60 mg PO DAILY 09/30/24 0 09/30/24 hr,extended release Previous Rx's ?Medication ?Instructions ?Recorded diclofenac sodium 50 mg 50 mg PO Q12H PRN pain #20 t abs 09/30/24 tablet,delayed release orphenadrine citrate 100 mg 100 mg PO BID PRN muscle s pasm #10 09/30/24 tablet,extended release tabs Allergies Allergy/AdvReac Type Severity Reaction Status Date / Time sumatriptan (From Imitrex) AdvReac Severe Migraine Verified 09/30/24 06:31 topiramate (From Trokendi XR) AdvReac Severe nightmares Verified 09/30/24 06:31 Opioid HPI Opioid Management Most Recent Pain and Opioid Data: Last Pain Scale 5 Today, 06:43 Last Pain Assessment Today, 08:21 Review of Systems ROS Status of ROS 10 or more systems reviewed and unremark able except as noted in history and below PFSH PFSH Social History Smoking status: Never smoker Little interest or pleasure in doing things: not at all Feeling down, depressed, or hopeless: not at all Exam Narrative Exam Narrative: Nurses notes and vital signs reviewed and patient is not hypoxic. General: Well-appearing and in no apparent distress. Skin: Warm, dry, no pallor noted. No rash. Head: Normocephalic, at the posterior aspect of the occipital area the patient have a almost 2 x 1 cm oval-shaped subcutaneous hematoma Neck: Supple, non-tender. Cardiovascular: Regular Rate and Rhythm without murmur, gallop or rub. Respiratory: No accessory muscle use or respiratory distress. Lungs are clear to auscultation, no wheezing, rales or rhonchi Chest Wall: no tenderness Back: No midline thoracic or lumbar vertebral tenderness. No CVA tenderness Musculoskeletal: normal ROM, no calf or popliteal tenderness, no lower extremity edema/swelling GI: Abdomen is soft, non-distended. Normal bowel sounds. No masses appreciated. No tenderness to palpation. No rebound, guarding, or rigidity noted. Neurological: A&O x4. No cranial nerve dysfunction observed. Constitutional Vital Signs, click to edit/add: Last Vital Signs Temp 97.6 F 09/30/24 06:23 Pulse 63 09/30/24 08:21 Resp 20 09/30/24 08:21 BP 138/66 09/30/24 08:21 Pulse Ox 99 09/30/24 08:21 O2 Del Method Room Air 09/30/24 08:21 Course Vital Signs Vital signs: Vital Signs Temperature 97.6 F 09/30/24 06:23 Pulse Rate 65 09/30/24 06:23 Respiratory Rate 16 09/30/24 06:23 Blood Pressure 150/86 H 09/30/24 06:23 Pulse Oximetry 99 09/30/24 06:23 Oxygen Delivery Method Room Air 09/30/24 06:23 Temperature 97.6 F 09/30/24 06:23 Pulse Rate 63 09/30/24 08:21 Respiratory Rate 20 09/30/24 08:21 Blood Pressure 138/66 09/30/24 08:21 Pulse Oximetry 99 09/30/24 08:21 Oxygen Delivery Method Room Air 09/30/24 08:21 MDM - Fall MDM Narrative Medical decision making narrative: CT of the head as well as CT of the neck showed no acute significant pathology the patient subcutaneous edema due to contusion The patient with provided with Toradol as well as Benadryl and Compazine IM shots after which she was feeling better She was discharged home with Voltaren as well as Norflex with holding her tizanidine right now The patient was instructed about monitoring her symptoms for the next 12 hours she is instructed about any alarming symptoms of head injury that will bring her back to the ER including nausea vomiting or decreased level of consciousness The patient is to follow up with primary care physician in next 2-3 days or to return to the emergency department should any of the signs or symptoms worsen or new symptoms develop. The patient agrees with the following Diagnosis and Treatment plan and the patient will be discharged home. Discharge Plan Discharge Chief Complaint: Fall Clinical Impression: Contusion of head, Fall Patient Disposition: Home, Self-Care Time of Disposition Decision: 08:28 Prescriptions / Home Meds: New diclofenac sodium 50 mg tablet,delayed release (DR/EC) 50 mg PO Q12H PRN (Reason: pain) Qty: 20 0RF orphenadrine citrate 100 mg tablet extended release 100 mg PO BID PRN (Reason: muscle spasm) Qty: 10 0RF Held tizanidine 4 mg tablet Hold Instructions: Resume on 10/06/24. hold while using norflex No Action duloxetine 60 mg capsule,delayed release(DR/EC) PO levothyroxine [Levo-T] 88 mcg tablet 88 mcg PO DAILY tramadol 50 mg tablet propranolol 60 mg capsule,extended release 24 hr 60 mg PO DAILY Print Language: Irish Instructions: Head Injury (DC), Contusion in Adults (ED) Referrals: [facility] [Primary Care Provider, Family Practice] - 1 week
[2024-09-30 08:21] VITALS: BP 138/66; PULSE 63; O2SAT 99
== END 2024-09-30 08:37 | disposition home or self-care (01) ==
PROVIDERS: Emergency Provider Emergency Medicine; PCP Family Medicine
DX: S00.93XA Contusion of unspecified part of head, initial encounter (principal); W01.0XXA Fall on same level from slipping, tripping and stumbling without subsequent striking against object, initial encounter
CPT/HCPCS: 70450; 72125; 96372; 99285; J0780; J1200; J1885

== ENCOUNTER 2024-12-30 13:50 | Outpatient (RCR) | payer MEDICARE, SELFPAY | END 2025-02-14 12:46 | disposition home or self-care (01) | LOC: PT 13:50 | PROVIDERS: PCP Family Medicine; Visit Provider Personal Emergency Response Attendant | DX: M25.511 Pain in right shoulder (principal); Z98.890 Other specified postprocedural states | CPT/HCPCS: 97110; 97140; 97162 ==